=== PATIENT | female | born 1970 | race Caucasian/White ===

== ENCOUNTER 2016-07-07 19:24 | Emergency (ER) | payer BC, MEDICARE ==
[2016-07-07] MEDS ORDERED: KETOROLAC 30 MG/ML VIAL IVP ONE (19:58)
[2016-07-07] MEDS ORDERED: ONDANSETRON HCL IV 4 MG/2 ML VIAL IVP ONE (19:58)
[2016-07-07] MEDS ORDERED: HYOSCYAMINE SULFATE ODT 0.125 MG TAB.SUBL SL ONE (19:58)
--- NOTE | 2016-07-07 20:02 | Emergency Department Record ---
History of Present Illness - General Stated Complaint: EAR PAIN,FEVER, PAIN Time Seen by Provider: 07/07/16 19:57 Source: Patient Mode of Arrival: Ambulatory Limitations: No limitations - History of Present Illness Initial Comments: 46 yo female presents to ED with a CC of nausea, vomiting, body aches, and fever today. Patient reports very mild cough symptoms, denies abdominal pain symptoms. Patient reports headache but denies neck stiffness symptoms. Patient does report a history of RA and is taking Humira currently. Patient denies health problems otherwise. MD Complaint: Fever Onset/Timin -: Days(s) Context: On immunosuppressant(s) Associated Symptoms: Vomiting, Chills, Myalgias, Nausea - Related Data Home Medications Medication Instructions Recorded Confirmed Last Taken Adalimumab [Humira] 60 mg SQ ASDIR 01/30/15 06/19/16 05/24/16 Aripiprazole [Abilify] 5 mg PO DAILY 01/30/15 06/19/16 05/24/16 Duloxetine HCl [Cymbalta] 20 mg PO BID 01/30/15 06/19/16 05/24/16 Gabapentin [Neurontin] 300 mg PO TID 01/30/15 06/19/16 05/24/16 Tramadol HCl [Ultram ER] 300 mg PO DAILY 01/30/15 06/19/16 05/24/16 Hydrocodone/Acetaminophen [[place] 1 tab PO Q8H PRN 10/26/15 06/19/16 05/24/16 7.5mg/325mg] Omeprazole 40 mg PO BID 05/24/16 06/19/16 05/24/16 Previous Rx's Medication Instructions Recorded Doxycycline Hyclate [Doxycycline] 100 mg PO BID #20 cap 07/07/16 Ondansetron [Zofran Odt] 4 mg PO Q4H PRN #20 tab.rapdis 07/07/16 Allergies Allergy/AdvReac Type Severity Reaction Status Date / Time Iodinated Contrast Media - Allergy HIVES Verified 05/24/16 18:26 Oral and Review of Systems Constitutional: Reports: Chills, Fever, Malaise, Weakness. Denies: Night sweats Eyes: Denies: Eye discharge, Eye pain ENT: Reports: Congestion, Ear pain. Denies: Epistaxis Respiratory: Reports: Cough. Denies: Dyspnea, Wheezes Cardiovascular: Denies: Chest pain, Dyspnea on exertion Endocrine: Reports: Fatigue. Denies: Heat or cold intolerance Gastrointestinal: Reports: Diarrhea, Nausea, Vomiting. Denies: Abdominal pain, Constipation Genitourinary: Denies: Frequency, Hematuria, Incontinence, Retention Musculoskeletal: Reports: Myalgia. Denies: Arthralgia, Back pain, Gout, Joint swelling Skin: Denies: Bruising, Change in color Neurological: Reports: Headache. Denies: Abnormal gait, Confusion, Numbness Psychiatric: Denies: Anxiety Hematological/Lymphatic: Denies: Anemia, Blood Clots Past Medical History - SOCIAL HISTORY Smoking Status: Former smoker Drug Use: None - RESPIRATORY Hx Respiratory Disorders: No - CARDIOVASCULAR Hx Cardio Disorders: No - NEURO Hx Neuro Disorders: Yes Hx Headaches: Yes Hx Neuropathy: Yes - GI Hx GI Disorders: No - Hx Genitourinary Disorders: Yes Hx UTI: Yes - ENDOCRINE Hx Endocrine Disorders: No - MUSCULOSKELETAL Hx Musculoskeletal Disorders: Yes Hx Arthritis: Yes (RA) Hx Fibromyalgia: Yes - PSYCH Hx Psych Problems: Yes Hx Anxiety: Yes Hx Depression: Yes - HEMATOLOGY/ONCOLOGY Hx Hematology/Oncology Disorders: No Family Medical History Hx Cancer: Grandparents Hx Heart Disease: Grandparents Hx HTN: Grandparents Physical Exam - General General Appearance: Alert, Oriented x3, Cooperative, Moderate distress Limitations: No limitations - Head Head exam: Atraumatic, Normocephalic, Normal inspection Head exam detail: negative: Abrasion, Contusion, Brady's sign, General tenderness, Hematoma, Laceration - Eye Eye exam: Normal appearance. negative: Conjunctival injection, Periorbital swelling, Periorbital tenderness, Scleral icterus - ENT ENT exam: TM's normal bilaterally Ear exam: negative: Auricular hematoma, Auricular trauma Nasal Exam: negative: Active bleeding, Discharge, Dried blood, Foreign body Throat exam: negative: Tonsillar erythema, Tonsillomegaly, R peritonsillar mass , L peritonsillar mass - Neck Neck exam: Normal inspection. negative: Meningismus, Tenderness - Respiratory Respiratory exam: Normal lung sounds bilaterally. negative: Respiratory distress, Rhonchi, Stridor, Wheezes - Cardiovascular Cardiovascular Exam: Regular rate, Normal rhythm, Normal heart sounds - GI/Abdominal GI/Abdominal exam: Soft. negative: Rebound, Rigid, Tenderness - Rectal Rectal exam: Deferred - exam: Deferred - Extremities Extremities exam: Normal inspection. negative: Calf tenderness, Pedal edema, Tenderness - Back Back exam: Denies: CVA tenderness (R), CVA tenderness (L) - Neurological Neurological exam: Alert, Normal gait, Oriented X3 - Psychiatric Psychiatric exam: Normal affect, Normal mood. negative: Anxious - Skin Skin exam: Normal color. negative: Abrasion Type of lesion: negative: abrasion Course - Reevaluation(s) Reevaluation #1: 07/07/16 21:04 Labs reviewed and are grossly unremarkable for an acute process. Patient reports that her symptoms are beginning to improve. Will add CXR as well and re -evaluate. Reevaluation #2: 07/07/16 22:04 CXR: Left caryl-hilar infiltrate patient and her updated on all results thus far, 2nd liter has completed infusing. Will re-vital and initiate antibiotics for treatment of CAP at this time. Reevaluation #3: 07/07/16 22:33 Patient unable to provide UA sample at this time. repeat vitals are withing normal limits as well. Reevaluation #4: 07/07/16 23:54 Patient's antibiotics have completed infusing for CAP, patient reassessed and has no meningeal signs on examination. repeat temperature is 98.4. Awaiting UA result that has now been obtained. Medical Decision Making - Lab Data Result diagrams: 07/07/16 20:25 07/07/16 20:25 Disposition Disposition: Discharge Clinical Impression: CAP (community acquired pneumonia) Disposition: Home, Self-Care Condition: (2) Stable Instructions: Community-acquired Pneumonia (ED) Additional Instructions: Return to ED if your symptoms worsen or if you have any concerns. Doxycycline as directed. Follow-up with your family doctor in 1-3 days as directed. Prescriptions: Doxycycline Hyclate [Doxycycline] 100 mg PO BID #20 cap Ondansetron [Zofran Odt] 4 mg PO Q4H PRN #20 tab.rapdis PRN Reason: Nausea/Vomiting Forms: Patient Portal Access Time of Disposition: 23:56
[2016-07-07] MEDS: 0.9 % SODIUM CHLORIDE 1000ML 1,000 ML IV SCH ×2 (20:19→21:30)
[2016-07-07 20:28] LABS: INFLUENZA A NEGATIVE (NEGATIVE); INFLUENZA B NEGATIVE (NEGATIVE)
[2016-07-07 20:33] LABS: BASO % 0.2 % (0-6); GRAN % 78.5 % (47-80); HEMATOCRIT 37.8 % (35.0-47.0); HEMOGLOBIN 12.5 gm/dl (11.6-16.0); MEAN CORPUSCULAR HEMOGLOBIN 31.1 pg (27-33); MEAN CORPUSCULAR HGB CONC 33.1 g/dl (32-36); MEAN PLATELET VOLUME 11.3 fl (7.4-10.4); MONO % 6.3 % (0-9); PLATELET COUNT 226 K/uL (130-400); RED BLOOD COUNT 4.02 M/uL (3.80-5.40); RED CELL DISTRIBUTION WIDTH 12.6 % (11.5-14.5); WHITE BLOOD COUNT W/O DIFF 11.2 K/uL (4.2-12.2)
[2016-07-07 20:46] LABS: ALB/GLOB RATIO 1.3 (1.1-1.8); ALBUMIN 4.4 gm/dL (3.5-5.0); ALKALINE PHOSPHATASE 66 U/L (38-126); ALT/SGPT 31 U/L (9-52); ANION GAP 13.4 (7-16); AST/SGOT 22 U/L (14-36); BLOOD UREA NITROGEN 10 mg/dL (7-17); CARBON DIOXIDE 23.6 mmol/L (22-30); CREATININE 0.9 mg/dL (0.52-1.04); EST GLOMERULAR FILTRATION RATE > 60 ml/min; GLUCOSE,RANDOM 101 mg/dL (70-110); TOTAL PROTEIN 7.7 gm/dL (6.3-8.2)
[2016-07-07] MEDS ORDERED: 0.9 % SODIUM CHLORIDE 1000ML 1,000 ML IV SCH (21:15)
[2016-07-07] MEDS ORDERED: CEFTRIAXONE SODIUM 1 GM in 0.9 % SODIUM CHLORIDE 100ML 100 ML IVPB ONE (22:05)
[2016-07-07] MEDS ORDERED: AZITHROMYCIN 500 MG in 0.9 % SODIUM CHLORIDE 250ML 250 ML IVPB ONE (22:05)
[2016-07-07 23:56] LABS: URINE APPEARANCE CLEAR; URINE BILIRUBIN NEGATIVE (NEGATIVE); URINE BLOOD SMALL (NEGATIVE); URINE COLOR YELLOW; URINE GLUCOSE (UA) NEGATIVE (NEGATIVE); URINE KETONE TRACE (NEGATIVE); URINE LEUKOCYTE ESTERASE NEGATIVE (NEGATIVE); URINE NITRITE NEGATIVE (NEGATIVE); URINE PROTEIN NEGATIVE (NEGATIVE); URINE UROBILINOGEN 0.2 E.U./dL (0.20 - 1.00)
[2016-07-08 00:12] LABS: URINE EPITHELIAL CELLS 0 - 2 (FEW); URINE WBC 0 - 2 (0-2/hpf)
== END 2016-07-08 00:11 | disposition home or self-care (01) ==
LOC: MERGE 19:24 → ER 19:24
DX: J18.9 Pneumonia, unspecified organism (principal); R11.2 Nausea with vomiting, unspecified; M79.1 Myalgia; M06.9 Rheumatoid arthritis, unspecified; Z87.891 Personal history of nicotine dependence
CPT/HCPCS: 99284 ×2; 96365; 96375; 85025; 80053; 81001; 87880; 87400; 71020; J1980; J1885; J2405; J0456; J7030; J7050

== ENCOUNTER 2016-07-09 09:06 | Emergency (ER) | payer BC ==
--- NOTE | 2016-07-09 09:24 | Emergency Department Record ---
History of Present Illness - General Chief Complaint: Recheck - Other Stated Complaint: PNEUMONIA NOT ANY BETTER Time Seen by Provider: 07/09/16 09:14 Source: Patient Mode of arrival: Ambulatory Limitations: No limitations - History of Present Illness Initial Comments: The patient is here for recheck due to not feeling well for a few days. She was in the ER about 36 hours ago for body aches, fever, ST, BULLOCK and a mild cough. She was diagnosed with an early pneumonia and then was discharged on Doxycycline. Since the patient states she has had worsening nausea, vomiting, and loose stools. She may have had a fever yesterday but none today. There is no reported blood in the stool or vomitus. She also is complaining of pain all over her abdomen, back, and head. The patient has a long hx of chronic pain and does also have RA and is on Humira. Additionally the patient states she has had about 10 episodes of loose stools and 5 episodes of vomiting since leaving the ED 33 hours ago. The patient is on multiple chronic pain medicines and did run out of her [place] 3 days ago. MD Complaint: Other Onset/Timin -: Days(s) Initial Visit For: Other Returns Today for: Other Symptoms Since Prior Visit: Other Associated Symptoms: Nausea Treatments Prior to Arrival: Given antibiotics on initial visit, Home treatments - Related Data Home Medications Medication Instructions Recorded Confirmed Last Taken Adalimumab [Humira] 60 mg SQ ASDIR 01/30/15 07/09/16 05/24/16 Aripiprazole [Abilify] 5 mg PO DAILY 01/30/15 07/09/16 05/24/16 Duloxetine HCl [Cymbalta] 20 mg PO BID 01/30/15 07/09/16 05/24/16 Gabapentin [Neurontin] 300 mg PO TID 01/30/15 07/09/16 05/24/16 Tramadol HCl [Ultram ER] 300 mg PO DAILY 01/30/15 07/09/16 05/24/16 Hydrocodone/Acetaminophen [[place] 1 tab PO Q8H PRN 10/26/15 07/09/16 05/24/16 7.5mg/325mg] Omeprazole 40 mg PO BID 05/24/16 07/09/16 05/24/16 Celecoxib [Celecoxib] 200 mg PO DAILY 07/09/16 07/09/16 Unknown Previous Rx's Medication Instructions Recorded Doxycycline Hyclate [Doxycycline] 100 mg PO BID #20 cap 07/07/16 Ondansetron [Zofran Odt] 4 mg PO Q4H PRN #20 tab.rapdis 07/07/16 Ciprofloxacin HCl [Cipro] 500 mg PO Q12HR #14 tablet 07/09/16 Metronidazole [Flagyl] 500 mg PO TID #21 tablet 07/09/16 Allergies Allergy/AdvReac Type Severity Reaction Status Date / Time Iodinated Contrast Media - Allergy HIVES Verified 05/24/16 18:26 Oral and Travel Screening - Travel/Exposure Within Last 30 Days Have you traveled within the last 30 days?: No Review of Systems Constitutional: Reports: Malaise. Denies: Chills, Fever Eyes: Denies: Eye discharge, Eye pain ENT: Denies: Congestion Respiratory: Reports: Cough. Denies: Dyspnea Cardiovascular: Denies: Arrhythmia, Chest pain Endocrine: Reports: Fatigue Gastrointestinal: Reports: Abdominal pain, Diarrhea, Nausea, Vomiting Genitourinary: Denies: Dysuria Musculoskeletal: Reports: Back pain Skin: Denies: Bruising Past Medical History - SOCIAL HISTORY Smoking Status: Former smoker - RESPIRATORY Hx Respiratory Disorders: Yes Hx Pneumonia: Yes - CARDIOVASCULAR Hx Cardio Disorders: No - NEURO Hx Neuro Disorders: Yes Hx Headaches: Yes Hx Neuropathy: Yes - GI Hx GI Disorders: No - Hx Genitourinary Disorders: Yes Hx UTI: Yes - ENDOCRINE Hx Endocrine Disorders: No - MUSCULOSKELETAL Hx Musculoskeletal Disorders: Yes Hx Arthritis: Yes (RA) Hx Fibromyalgia: Yes - PSYCH Hx Psych Problems: Yes Hx Anxiety: Yes Hx Depression: Yes - HEMATOLOGY/ONCOLOGY Hx Hematology/Oncology Disorders: No Family Medical History Any Significant Family History?: Yes Hx Cancer: Grandparents Hx Heart Disease: Grandparents Hx HTN: Grandparents Physical Exam - General General Appearance: Alert, Oriented x3, Cooperative, No acute distress - Head Head exam: Atraumatic, Normocephalic, Normal inspection - Eye Eye exam: Normal appearance, PERRL - ENT Throat exam: Normal inspection. negative: Tonsillar erythema, Tonsillar exudate - Neck Neck exam: Normal inspection, Full ROM. negative: Lymphadenopathy, Meningismus (The neck is very supple with a neg Kernig's and Brudsinski's reflexes.), Tenderness - Respiratory Respiratory exam: Normal lung sounds bilaterally. negative: Respiratory distress - Cardiovascular Cardiovascular Exam: Regular rate, Normal rhythm, Normal heart sounds - GI/Abdominal GI/Abdominal exam: Soft, Normal bowel sounds. negative: Rebound, Rigid, Tenderness - Extremities Extremities exam: Normal inspection, Full ROM, Normal capillary refill. negative: Tenderness - Back Back exam: Reports: Normal inspection, Full ROM. Denies: Muscle spasm, Rash noted, Tenderness - Neurological Neurological exam: Alert, Normal gait, Oriented X3. negative: Abnormal gait, Altered, Motor sensory deficit - Psychiatric Psychiatric exam: negative: Anxious - Skin Skin exam: negative: Rash Course Vital Signs 07/09/16 09:07 Temperature 97.5 F L Pulse Rate 88 Respiratory 21 Rate Blood Pressure 110/72 Pulse Ox 98 - Reevaluation(s) Reevaluation #1: The patient is doing very well at this time. She is resting comfortably but does still have her chronic pain issues. Since we do not have her extended release Tramadol that she normally takes we will electroencephalograph technologist her a 50 mg Tramadol orally and 0.5 mg of Dilaudid IV 07/09/16 10:31 Reevaluation #2: The patient is doing well and denies any new issues. I did apologize about the delay due to our lab analyzer malfunctioning. We are still waiting on lab results. 07/09/16 11:38 Reevaluation #3: The patient is doing better at this time. She denies any new pain or discomfort. She has had no vomiting, diarrhea or fever here in the ER over the last 4 hours. On exam her abdomen is very soft and nontender but there is some reproducible lumbar paraspinal tenderness bilaterally. Her gait is normal and she denies any significant BULLOCK at this time. On recheck her repeat temp is 97.7 oral. I did discuss the CT report with the patient and it was neg for any KS or ureter stone. It did possibly demonstrate colon inflammation and a Colonoscopy was recommended. 07/09/16 12:51 Medical Decision Making - Data Complexity MDM Data: Labs Ordered and/or Reviewed, X-Ray Ordered and/or Reviewed - Lab Data Result diagrams: 07/09/16 09:30 07/09/16 09:30 - Radiology Data Radiology results: Report reviewed (CXR: Neg Abd CT: Possible wall thickening of the hepatic flexure and transverse colon with possible some minor inflammatory changes present. Colonoscopy was recommended.) Disposition Disposition: Discharge Clinical Impression: Gastroenteritis Acute headache Qualifiers: Headache type: unspecified Intractability: not intractable Qualified Code(s): R51 - Headache Disposition: Home, Self-Care Condition: (1) Good Instructions: Gastroenteritis (ED) Additional Instructions: Please stop the Doxy and start Cipro and Flagyl. Please continue your regular medicines and see your PCP later this week for recheck. Return to the ER for any increased pain, fever, vomiting, or diarrhea. Prescriptions: Ciprofloxacin HCl [Cipro] 500 mg PO Q12HR #14 tablet Metronidazole [Flagyl] 500 mg PO TID #21 tablet Referrals: [facility] [Provider Group] Forms: Patient Portal Access Time of Disposition: 12:58
[2016-07-09] MEDS: 0.9 % SODIUM CHLORIDE 1,000 ML BAG IV ONE ×2 (09:32→11:10)
[2016-07-09] MEDS: ONDANSETRON HCL IV 4 MG/2 ML VIAL IV ONE (09:32)
[2016-07-09] MEDS: KETOROLAC 30 MG/ML VIAL IVP ONE (09:34)
[2016-07-09 09:39] LABS: BASO % 0.3 % (0-6); EOS % 0.5 % (0-6); GRAN % 66.9 % (47-80); HEMATOCRIT 34.2 % (35.0-47.0); HEMOGLOBIN 11.5 gm/dl (11.6-16.0); LYMPH % 23.2 % (16-45); MEAN CELL VOLUME 93.2 fl (81-97); MEAN CORPUSCULAR HEMOGLOBIN 31.3 pg (27-33); MEAN CORPUSCULAR HGB CONC 33.6 g/dl (32-36); MONO % 9.1 % (0-9); PLATELET COUNT 231 K/uL (130-400); RED BLOOD COUNT 3.67 M/uL (3.80-5.40); RED CELL DISTRIBUTION WIDTH 12.9 % (11.5-14.5); WHITE BLOOD COUNT W/O DIFF 7.3 K/uL (4.2-12.2)
[2016-07-09] MEDS: TRAMADOL HCL 50 MG TABLET PO ONE (10:33)
[2016-07-09] MEDS: HYDROMORPHONE HCL 1 MG/ML CPJ IVP ONE (10:33)
[2016-07-09 11:41] LABS: URINE APPEARANCE CLEAR; URINE BILIRUBIN NEGATIVE (NEGATIVE); URINE BLOOD MODERATE (NEGATIVE); URINE COLOR YELLOW; URINE GLUCOSE (UA) NEGATIVE (NEGATIVE); URINE KETONE 15 mg/dL (NEGATIVE); URINE LEUKOCYTE ESTERASE NEGATIVE (NEGATIVE); URINE NITRITE NEGATIVE (NEGATIVE); URINE UROBILINOGEN 0.2 E.U./dL (0.20 - 1.00)
[2016-07-09 11:51] LABS: URINE BACTERIA NONE SEEN; URINE EPITHELIAL CELLS NONE SEEN (FEW); URINE RBC 16 - 25 (NONE SEEN)
[2016-07-09] MEDS: HYDROCODONE/APAP 7.5/325MG TABLET PO ONE (13:09)
== END 2016-07-09 13:15 | disposition home or self-care (01) ==
LOC: ER 09:06 → MERGE 09:06 → ER 13:15
DX: K52.9 Noninfective gastroenteritis and colitis, unspecified (principal); R11.2 Nausea with vomiting, unspecified; G89.29 Other chronic pain; M06.9 Rheumatoid arthritis, unspecified; R10.9 Unspecified abdominal pain; R51 Headache
CPT/HCPCS: 99284 ×2; 96374; 96375; 96361; 83690; 85025; 85651; 80076; 86140; 80048; 81001; 81025; 71020; 74176; J1885; J2405; J1170; J7030

== ENCOUNTER 2016-07-16 19:05 | Emergency (ER) | payer BC ==
--- NOTE | 2016-07-16 19:33 | Emergency Department Record ---
History of Present Illness - General Chief complaint: Edema Stated complaint: L ARM SWOLLEN AND HARD Time Seen by Provider: 07/16/16 19:33 Source: Patient Mode of Arrival: Ambulatory Limitations: No limitations - History of Present Illness Initial comments: The patient is here due to L arm pain. She has and IV placed in the L arm a week ago while she was in the ER for an illness. For the last few days the L arm has become painful distally and slightly red. She did see her PCP 3 days ago and was told the Cipro and Flagyl she was taking would do the trick for the infection. Presently she is no better so she decided to come to the ER. MD Complaint: Extremity pain Onset/Timin -: Days(s) - Related Data Home Medications Medication Instructions Recorded Confirmed Last Taken Adalimumab [Humira] 60 mg SQ ASDIR 01/30/15 07/16/16 05/24/16 Aripiprazole [Abilify] 5 mg PO DAILY 01/30/15 07/16/16 05/24/16 Duloxetine HCl [Cymbalta] 20 mg PO BID 01/30/15 07/16/16 05/24/16 Gabapentin [Neurontin] 300 mg PO TID 01/30/15 07/16/16 05/24/16 Tramadol HCl [Ultram ER] 300 mg PO DAILY 01/30/15 07/16/16 05/24/16 Hydrocodone/Acetaminophen [[place] 1 tab PO Q8H PRN 10/26/15 07/16/16 05/24/16 7.5mg/325mg] Omeprazole 40 mg PO BID 05/24/16 07/16/16 05/24/16 Celecoxib [Celecoxib] 200 mg PO DAILY 07/09/16 07/16/16 Unknown Previous Rx's Medication Instructions Recorded Ondansetron [Zofran Odt] 4 mg PO Q4H PRN #20 tab.rapdis 07/07/16 Ciprofloxacin HCl [Cipro] 500 mg PO Q12HR #14 tablet 07/09/16 Metronidazole [Flagyl] 500 mg PO TID #21 tablet 07/09/16 Cephalexin [Keflex] 500 mg PO QID #28 cap 07/16/16 Allergies Allergy/AdvReac Type Severity Reaction Status Date / Time Iodinated Contrast Media - Allergy HIVES Verified 03/16/17 18:26 Oral and Travel Screening - Travel/Exposure Within Last 30 Days Have you traveled within the last 30 days?: No Review of Systems Constitutional: Denies: Chills, Fever Eyes: Denies: Eye discharge ENT: Denies: Congestion Respiratory: Denies: Cough, Dyspnea Past Medical History - SOCIAL HISTORY Smoking Status: Former smoker Alcohol Use: None Drug Use: None - RESPIRATORY Hx Respiratory Disorders: Yes Hx Pneumonia: Yes - CARDIOVASCULAR Hx Cardio Disorders: No - NEURO Hx Neuro Disorders: Yes Hx Headaches: Yes Hx Neuropathy: Yes - GI Hx GI Disorders: No - Hx Genitourinary Disorders: Yes Hx UTI: Yes - ENDOCRINE Hx Endocrine Disorders: No - MUSCULOSKELETAL Hx Musculoskeletal Disorders: Yes Hx Arthritis: Yes (RA) Hx Fibromyalgia: Yes - PSYCH Hx Psych Problems: Yes Hx Anxiety: Yes Hx Depression: Yes - HEMATOLOGY/ONCOLOGY Hx Hematology/Oncology Disorders: No Family Medical History Any Significant Family History?: Yes Hx Cancer: Grandparents Hx Heart Disease: Grandparents Hx HTN: Grandparents Physical Exam - General General Appearance: Alert, Oriented x3, No acute distress - Head Head exam: Atraumatic, Normocephalic, Normal inspection - Eye Eye exam: Normal appearance, PERRL - Neck Neck exam: Normal inspection, Full ROM. negative: Tenderness - Respiratory Respiratory exam: Normal lung sounds bilaterally. negative: Respiratory distress - Cardiovascular Cardiovascular Exam: Regular rate, Normal rhythm, Normal heart sounds - Extremities Extremities exam: Full ROM, Normal capillary refill, Tenderness (There is tenderness and slight erythema to the distal L forearm and wrist area distal to the IV site. There may be slight lymphangitis progressing proximally from the presumed cellulitis area.), Other (There is no L upper arm swelling or fullness or any significant tenderness at this time.). negative: Normal inspection Course Vital Signs 07/16/16 19:28 Temperature 97.9 F Pulse Rate 79 Respiratory 18 Rate Blood Pressure 123/84 Pulse Ox 100 Medical Decision Making - Lab Data Result diagrams: 07/16/16 19:50 07/16/16 19:50 Disposition Disposition: Discharge Clinical Impression: Left arm cellulitis Disposition: Home, Self-Care Condition: (1) Good Instructions: Cellulitis (ED) Additional Instructions: Please stop the Cipro and Flagyl. Start the Keflex. Please elevate the L arm and use warm compresses on it during the day. Please return to the ER tomorrow if not better. Please see Dr. Garland later this week for recheck if improved. Prescriptions: Cephalexin [Keflex] 500 mg PO QID #28 cap Forms: Patient Portal Access Time of Disposition: 20:39
[2016-07-16] MEDS ORDERED: CEFTRIAXONE SODIUM 1 GM in 0.9 % SODIUM CHLORIDE 100ML 100 ML IVPB ONE (19:37)
[2016-07-16] MEDS ORDERED: KETOROLAC 30 MG/ML VIAL IVP ONE (19:53)
[2016-07-16 20:01] LABS: WHITE BLOOD COUNT W/O DIFF 10.8 K/uL (4.2-12.2)
[2016-07-16 20:02] LABS: HEMATOCRIT 35.7 % (35.0-47.0); HEMOGLOBIN 11.5 gm/dl (11.6-16.0); MEAN CELL VOLUME 96.5 fl (81-97); MEAN CORPUSCULAR HGB CONC 32.2 g/dl (32-36); MEAN PLATELET VOLUME 10.5 fl (7.4-10.4); PLATELET COUNT 348 K/uL (130-400)
[2016-07-16 20:12] LABS: ANION GAP 9.5 (7-16); BLOOD UREA NITROGEN 13 mg/dL (7-17); CARBON DIOXIDE 28.5 mmol/L (22-30); CREATININE 0.9 mg/dL (0.52-1.04); EST GLOMERULAR FILTRATION RATE > 60 ml/min; GLUCOSE,RANDOM 90 mg/dL (70-110)
[2016-07-16 20:13] LABS: C-REACTIVE PROTEIN < 0.5 mg/dL (0.0-0.9)
== END 2016-07-16 20:46 | disposition home or self-care (01) ==
LOC: ER 19:05
DX: L03.114 Cellulitis of left upper limb (principal)
CPT/HCPCS: 99284 ×2; 96374; 96375; 86140; 80048; 85027; J1885

== ENCOUNTER 2016-07-17 19:22 | Emergency (ER) | payer BC ==
--- NOTE | 2016-07-17 20:03 | Emergency Department Record ---
History of Present Illness - General Chief Complaint: Recheck - Other Stated Complaint: RE-CHECK ON LEFT ARM Time Seen by Provider: 07/17/16 19:24 Source: Patient Mode of arrival: Ambulatory Limitations: No limitations - History of Present Illness Initial Comments: 46 yo female presents to ED for re-evaluation of left forearm, was seen last night and started on Keflex for possible cellulitis. Patient denies fevers, chills, or recent illness. Patient reports that she was told to return if her symptoms failed to improve in 12-24 hours. MD Complaint: Wound re-check Onset/Timin -: Days(s) Initial Visit For: Cellulitis Returns Today for: Cellulitis follow-up Symptoms Since Prior Visit: No new symptoms - Related Data Home Medications Medication Instructions Recorded Confirmed Last Taken Adalimumab [Humira] 60 mg SQ ASDIR 01/30/15 07/17/16 05/24/16 Aripiprazole [Abilify] 5 mg PO DAILY 01/30/15 07/17/16 05/24/16 Duloxetine HCl [Cymbalta] 20 mg PO BID 01/30/15 07/17/16 05/24/16 Gabapentin [Neurontin] 300 mg PO TID 01/30/15 07/17/16 05/24/16 Tramadol HCl [Ultram ER] 300 mg PO DAILY 01/30/15 07/17/16 05/24/16 Hydrocodone/Acetaminophen [[place] 1 tab PO Q8H PRN 10/26/15 07/17/16 05/24/16 7.5mg/325mg] Omeprazole 40 mg PO BID 05/24/16 07/17/16 05/24/16 Celecoxib [Celecoxib] 200 mg PO DAILY 07/09/16 07/17/16 Unknown Previous Rx's Medication Instructions Recorded Ondansetron [Zofran Odt] 4 mg PO Q4H PRN #20 tab.rapdis 07/07/16 Cephalexin [Keflex] 500 mg PO QID #28 cap 07/16/16 Allergies Allergy/AdvReac Type Severity Reaction Status Date / Time Iodinated Contrast Media - Allergy HIVES Verified 05/24/16 18:26 Oral and Travel Screening - Travel/Exposure Within Last 30 Days Have you traveled within the last 30 days?: No Review of Systems Constitutional: Denies: Chills, Fever, Malaise, Night sweats Eyes: Denies: Eye discharge, Eye pain ENT: Denies: Congestion, Ear pain, Epistaxis Respiratory: Denies: Cough, Dyspnea Cardiovascular: Denies: Chest pain, Dyspnea on exertion Endocrine: Denies: Fatigue, Heat or cold intolerance Gastrointestinal: Denies: Abdominal pain, Nausea, Vomiting Genitourinary: Denies: Dysuria, Frequency, Hematuria, Incontinence Musculoskeletal: Denies: Arthralgia, Back pain, Gout, Joint swelling Skin: Reports: Change in color (erythema to the left forearm). Denies: Bruising Neurological: Denies: Abnormal gait, Confusion, Headache, Seizure Psychiatric: Denies: Anxiety Hematological/Lymphatic: Denies: Anemia, Blood Clots Past Medical History - SOCIAL HISTORY Smoking Status: Former smoker Alcohol Use: None Drug Use: None - RESPIRATORY Hx Respiratory Disorders: Yes Hx Pneumonia: Yes - CARDIOVASCULAR Hx Cardio Disorders: No - NEURO Hx Neuro Disorders: Yes Hx Headaches: Yes Hx Neuropathy: Yes - GI Hx GI Disorders: No - Hx Genitourinary Disorders: Yes Hx UTI: Yes - ENDOCRINE Hx Endocrine Disorders: No - MUSCULOSKELETAL Hx Musculoskeletal Disorders: Yes Hx Arthritis: Yes (RA) Hx Fibromyalgia: Yes - PSYCH Hx Psych Problems: Yes Hx Anxiety: Yes Hx Depression: Yes - HEMATOLOGY/ONCOLOGY Hx Hematology/Oncology Disorders: No Family Medical History Any Significant Family History?: Yes Hx Cancer: Grandparents Hx Heart Disease: Grandparents Hx HTN: Grandparents Physical Exam - General General Appearance: Alert, Oriented x3, Cooperative, No acute distress Limitations: No limitations - Head Head exam: Atraumatic, Normocephalic, Normal inspection Head exam detail: negative: Abrasion, Contusion, Brady's sign, General tenderness, Hematoma, Laceration - Eye Eye exam: Normal appearance. negative: Conjunctival injection, Periorbital swelling, Periorbital tenderness, Scleral icterus - ENT Ear exam: negative: Auricular hematoma, Auricular trauma Nasal Exam: negative: Active bleeding, Discharge, Dried blood, Foreign body Mouth exam: negative: Drooling, Laceration, Muffled voice, Tongue elevation - Neck Neck exam: Normal inspection. negative: Meningismus, Tenderness - Respiratory Respiratory exam: Normal lung sounds bilaterally. negative: Rales, Respiratory distress, Rhonchi, Stridor - Cardiovascular Cardiovascular Exam: Regular rate, Normal rhythm, Normal heart sounds - GI/Abdominal GI/Abdominal exam: Soft. negative: Rebound, Rigid, Tenderness - Rectal Rectal exam: Deferred - exam: Deferred - Extremities Extremities exam: Tenderness, Other (Mild TTP and faint erythema noted to the radial aspect of the distal left forearm, no abscess present, mild STS is present to the area.). negative: Calf tenderness, Pedal edema - Back Back exam: Denies: CVA tenderness (R), CVA tenderness (L) - Neurological Neurological exam: Alert, Normal gait, Oriented X3 - Psychiatric Psychiatric exam: Normal affect, Normal mood - Skin Skin exam: Normal color. negative: Abrasion Type of lesion: negative: abrasion Course Vital Signs 07/17/16 19:33 Temperature 98.3 F Pulse Rate 74 Respiratory 18 Rate Blood Pressure 111/82 Pulse Ox 98 - Reevaluation(s) Reevaluation #1: 07/17/16 20:09 Area of erythema was outlined for the patient to determine if the patient's symptoms worsen, will apply velcro wrist splint for support of the patient's pain and inflammation symptoms. Patient appears stable for discharge with instructions to continue her Keflex as directed. Disposition Disposition: Discharge Clinical Impression: Left arm cellulitis Disposition: Home, Self-Care Condition: (2) Stable Instructions: Cellulitis (ED) Additional Instructions: Return to ED if your symptoms worsen or if you have any concerns. Follow-up with your family doctor in 1-3 days as directed. Continue Keflex as directed. Forms: Patient Portal Access Time of Disposition: 20:03
== END 2016-07-17 20:20 | disposition home or self-care (01) ==
LOC: ER 19:22
DX: L03.114 Cellulitis of left upper limb (principal)
CPT/HCPCS: 99283

== ENCOUNTER 2016-11-24 11:58 | Emergency (ER) | payer BC ==
--- NOTE | 2016-11-24 12:18 | Emergency Department Record ---
History of Present Illness - General Chief Complaint: Headache Migraine Stated Complaint: HEADACHE,VOMITTING Time Seen by Provider: 11/24/16 12:03 Source: Patient Mode of Arrival: Ambulatory Limitations: No limitations - History of Present Illness Initial Comments: The patient is here due to a worsening of her chronic pain syndrome. She woke up at 6am with head and jaw pain and then started vomiting about an hour ago. She has a long hx of these exact same headaches and jaw pain and is on multiple medicines for it. She did take her chronic pain medicines but with no relief. Due to that issue she decided to come to the ER. The patient denies any new symptoms and is having mild photophobia. MD Complaint: Headache Onset/Timin -: Hour(s) Onset Description: Awoke with symptoms Location: Diffuse Severity: Moderate Severity scale (1-10): 9 Quality: Aching, Similar to previous headaches Consistency: Constant Improves With: Rest Worsens With: Light Associated Symptoms: Photophobia Treatments Prior to Arrival: Prescription analgesic Treatment Prior to Arrival Comment:: Maite @ [id number] - Related Data Previous Rx's Medication Instructions Recorded Ondansetron [Zofran Odt] 4 mg PO Q4H PRN #20 tab.rapdis 07/07/16 Cephalexin [Keflex] 500 mg PO QID #28 cap 07/16/16 Allergies Allergy/AdvReac Type Severity Reaction Status Date / Time Iodinated Contrast- Oral and Allergy HIVES Verified 11/24/16 12:05 IV Dye [Iodinated Contrast Media - Oral and] Travel Screening - Travel/Exposure Within Last 30 Days Have you traveled within the last 30 days?: No - Travel/Exposure Within Last Year Have you traveled outside the [place] in the last year?: No - Additonal Travel Details Have you been exposed to anyone with a communicable illness?: No - Travel Symptoms Symptom Screening: None Review of Systems Constitutional: Denies: Chills, Fever Eyes: Denies: Eye discharge ENT: Denies: Congestion Respiratory: Denies: Cough, Dyspnea Past Medical History - SOCIAL HISTORY Smoking Status: Former smoker Alcohol Use: Rare Drug Use: None - RESPIRATORY Hx Respiratory Disorders: Yes Hx Pneumonia: Yes - CARDIOVASCULAR Hx Cardio Disorders: No - NEURO Hx Neuro Disorders: Yes Hx Headaches: Yes Hx Neuropathy: Yes - GI Hx GI Disorders: No - Hx Genitourinary Disorders: Yes Hx UTI: Yes - ENDOCRINE Hx Endocrine Disorders: No - MUSCULOSKELETAL Hx Musculoskeletal Disorders: Yes Hx Arthritis: Yes (RA) Hx Fibromyalgia: Yes - PSYCH Hx Psych Problems: Yes Hx Anxiety: Yes Hx Depression: Yes - HEMATOLOGY/ONCOLOGY Hx Hematology/Oncology Disorders: No Family Medical History Any Significant Family History?: Yes Hx Cancer: Grandparents Hx Heart Disease: Grandparents Hx HTN: Grandparents Physical Exam - General General Appearance: Alert, Oriented x3, Cooperative, Mild distress (due to a BULLOCK. ) - Head Head exam: Atraumatic, Normocephalic, Normal inspection - Eye Eye exam: Normal appearance, PERRL, EOMI - ENT Throat exam: Normal inspection. negative: Tonsillar erythema, Tonsillar exudate - Neck Neck exam: Normal inspection, Full ROM. negative: Lymphadenopathy, Meningismus , Tenderness - Respiratory Respiratory exam: Normal lung sounds bilaterally. negative: Respiratory distress - Cardiovascular Cardiovascular Exam: Regular rate, Normal rhythm, Normal heart sounds - GI/Abdominal GI/Abdominal exam: Soft, Normal bowel sounds. negative: Tenderness - Extremities Extremities exam: Normal inspection, Full ROM, Normal capillary refill. negative: Tenderness - Neurological Neurological exam: Alert, Normal gait, Oriented X3, Other (Neg [place] and Drift.). negative: Abnormal gait, Altered, Motor sensory deficit - Skin Skin exam: negative: Rash Course Vital Signs 11/24/16 12:09 Temperature 98.3 F Respiratory 16 Rate Pulse Ox 98 - Reevaluation(s) Reevaluation #1: The patient is doing better. She is sleeping at this time. 11/24/16 13:03 Reevaluation #2: The patient is doing much better at this time. Her pain is 90% resolved and she is up walking with no difficulty or discomfort. Her speech is clear and gait steady and she states she is ready for home. 11/24/16 14:00 Disposition Disposition: Discharge Clinical Impression: Chronic pain syndrome Disposition: Home, Self-Care Condition: (1) Good Instructions: Chronic Pain (ED) Additional Instructions: Please continue your regular medicines. Please see your PCP if not better in 2 days. Return to the ER if worse. Forms: Patient Portal Access Time of Disposition: 13:59 Quality - Quality Measures Quality Measures: N/A - Blood Pressure Screening View Details: Yes Does Patient Have Any of the Following: No Blood Pressure Classification: Normal BP Reading Systolic Measurement: 114 Diastolic Measurement: 66 Screening for High Blood Pressure: < Normal BP, F/U Not Required > [G8765]
[2016-11-24] MEDS ORDERED: METOCLOPRAMIDE HCL 10 MG/2 ML VIAL IVP ONE (12:20)
[2016-11-24] MEDS ORDERED: KETOROLAC 30 MG/ML VIAL IVP ONE ×2 (12:20→13:15)
[2016-11-24] MEDS ORDERED: 0.9 % SODIUM CHLORIDE 1,000 ML BAG IV ONE (12:20)
[2016-11-24] MEDS ORDERED: ONDANSETRON HCL IV 4 MG/2 ML VIAL IVP ONE (12:20)
[2016-11-24] MEDS ORDERED: LORAZEPAM 2 MG/ML VIAL IV ONE (13:15)
== END 2016-11-24 14:17 | disposition home or self-care (01) ==
LOC: ER 11:58
DX: G89.4 Chronic pain syndrome (principal); R51 Headache; R68.84 Jaw pain
CPT/HCPCS: 99284 ×2; 96376; 96374; 96375; J1885; J2405; J2060; J2765; J7030

== ENCOUNTER 2017-01-19 08:44 | Emergency (ER) | payer BC ==
--- NOTE | 2017-01-19 08:59 | Emergency Department Record ---
History of Present Illness - General Chief Complaint: Headache Migraine Stated Complaint: BULLOCK Time Seen by Provider: 01/19/17 08:54 Source: Patient - History of Present Illness Initial Comments: The patient states that she has had her typical migraine headache since yesterday morning. 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 Since then she has chronic jaw pain which at times increases in intensity and progresses into a migraine headache up into her foreahead and scalp. She took a [place] around 7 a.m. with no relief. She also is nauseated, photophobic, and phonophobic. She denies f,c, URI symptoms, rashes, stiff neck, ap(other than nausea), slurred speech, or unilateral weakness. She has had a normal head CT in the past. MD Complaint: "Migraine" - Related Data Home Medications Medication Instructions Recorded Confirmed Last Taken Adalimumab [Humira Pen] 25 mg INJ WEEKLY 01/19/17 01/19/17 01/12/17 Previous Rx's Medication Instructions Recorded Ondansetron [Zofran Odt] 4 mg PO Q4H PRN #20 tab.rapdis 07/07/16 Allergies Allergy/AdvReac Type Severity Reaction Status Date / Time Iodinated Contrast- Oral and Allergy HIVES Verified 01/19/17 08:54 IV Dye [Iodinated Contrast Media - Oral and] Review of Systems Reviewed: No additional complaints except as noted below Constitutional: Reports: As per HPI. Denies: Chills, Fever, Malaise, Night sweats, Weakness, Weight change Eyes: Reports: As per HPI. Denies: Eye discharge, Eye pain, Photophobia, Vision change ENT: Reports: As per HPI. Denies: Congestion, Dental pain, Ear pain, Epistaxis , Hearing loss, Throat pain Respiratory: Reports: As per HPI. Denies: Cough, Dyspnea, Hemoptysis, Stridor, Wheezes Cardiovascular: Reports: As per HPI. Denies: Arrhythmia, Chest pain, Dyspnea on exertion, Edema, Murmurs, Orthopnea, Palpitations, Paroxysmal nocturnal dyspnea, Rheumatic Fever, Syncope Endocrine: Reports: As per HPI. Denies: Fatigue, Heat or cold intolerance, Polydipsia, Polyuria Gastrointestinal: Reports: As per HPI. Denies: Abdominal pain, Constipation, Diarrhea, Hematemesis, Hematochezia, Melena, Nausea, Vomiting Genitourinary: Reports: As per HPI. Denies: Abnormal menses, Discharge, Dyspareunia, Dysuria, Frequency, Hematuria, Incontinence, Retention, Urgency Musculoskeletal: Reports: As per HPI. Denies: Arthralgia, Back pain, Gout, Joint swelling, Myalgia, Neck pain Skin: Reports: As per HPI. Denies: Bruising, Change in color, Change in hair/ nails, Lesions, Pruritus, Rash Neurological: Reports: As per HPI. Denies: Abnormal gait, Confusion, Headache, Numbness, Paresthesias, Seizure, Tingling, Tremors, Vertigo, Weakness Psychiatric: Reports: As per HPI. Denies: Anxiety, Auditory hallucinations, Depression, Homicidal thoughts, Suicidal thoughts, Visual hallucinations Hematological/Lymphatic: Reports: As per HPI. Denies: Anemia, Blood Clots, Easy bleeding, Easy bruising, Swollen glands Past Medical History - SOCIAL HISTORY Smoking Status: Former smoker Drug Use: None - RESPIRATORY Hx Respiratory Disorders: Yes Hx Pneumonia: Yes - CARDIOVASCULAR Hx Cardio Disorders: No - NEURO Hx Neuro Disorders: Yes Hx Headaches: Yes Hx Neuropathy: Yes - GI Hx GI Disorders: No - Hx Genitourinary Disorders: Yes Hx UTI: Yes - ENDOCRINE Hx Endocrine Disorders: No - MUSCULOSKELETAL Hx Musculoskeletal Disorders: Yes Hx Arthritis: Yes (RA) Hx Fibromyalgia: Yes - PSYCH Hx Psych Problems: Yes Hx Anxiety: Yes Hx Depression: Yes - HEMATOLOGY/ONCOLOGY Hx Hematology/Oncology Disorders: No Family Medical History Hx Cancer: Grandparents Hx Heart Disease: Grandparents Hx HTN: Grandparents Physical Exam - General General Appearance: Alert, Oriented x3, Cooperative, Moderate distress - Head Head exam: Normal inspection Head exam detail: Other (tender over TMJ's bilaterally on light palpation) - Eye Eye exam: Normal appearance, PERRL, EOMI. negative: Conjunctival injection, Nystagmus, Periorbital swelling, Periorbital tenderness Pupils: Normal accommodation - ENT ENT exam: Normal exam, Mucous membranes moist, Normal external ear exam, Normal orophraynx, TM's normal bilaterally Ear exam: Normal external inspection. negative: External canal tenderness Nasal Exam: Normal inspection. negative: Discharge, Sinus tenderness Mouth exam: Normal external inspection, Tongue normal, Trismus (opens mouth only partially) Teeth exam: Normal inspection. negative: Dental caries Throat exam: Normal inspection. negative: Tonsillar erythema, Tonsillar exudate - Neck Neck exam: Normal inspection, Full ROM. negative: Lymphadenopathy, Meningismus , Tenderness - Respiratory Respiratory exam: Normal lung sounds bilaterally. negative: Respiratory distress - Cardiovascular Cardiovascular Exam: Regular rate, Normal rhythm, Normal heart sounds - GI/Abdominal GI/Abdominal exam: Soft, Normal bowel sounds. negative: Tenderness - Rectal Rectal exam: Deferred - exam: Deferred - Extremities Extremities exam: Normal inspection, Full ROM, Normal capillary refill. negative: Tenderness - Back Back exam: Reports: Normal inspection, Full ROM. Denies: Muscle spasm, Rash noted, Tenderness - Neurological Neurological exam: Alert, CN II-XII intact, Normal gait, Oriented X3, Reflexes normal. negative: Motor sensory deficit - Psychiatric Psychiatric exam: Normal affect, Normal mood - Skin Skin exam: Dry, Intact, Normal color, Warm Course - Reevaluation(s) Reevaluation #1: Patient is only partially improved after medication. She states her TMJ's are whee the pain is coming from and she is in the process of getting a referral to [facility] for this. She agrees to go home to bed with an ativan pill to take if needed later. Mother at bedside in agreement and will drive her home 01/19/17 10:25 Medical Decision Making - Management Options MDM Management: No Additional Work-up Planned Disposition Disposition: Discharge Clinical Impression: TMJ pain dysfunction syndrome Migraine headache Qualifiers: Migraine type: without aura Status migrainosus presence: without status migrainosus Intractability: not intractable Qualified Code(s): G43.009 - Migraine without aura, not intractable, without status migrainosus Disposition: Home, Self-Care Condition: (1) Good Instructions: Migraine Headache (ED) Additional Instructions: Home, rest. Push fluids. Soft diet/no chewing. Foillow up with [facility] for TMJ problems. Follow up with PCP if not improving. Quality - Quality Measures Quality Measures: N/A - Blood Pressure Screening Does Patient Have Any of the Following: No Blood Pressure Classification: Pre-Hypertensive BP Reading Systolic Measurement: 124 Diastolic Measurement: 73 Screening for High Blood Pressure: < Normal BP, F/U Not Required > [G8783]
[2017-01-19] MEDS ORDERED: ONDANSETRON HCL IV 4 MG/2 ML VIAL IVP ONE (09:08)
[2017-01-19] MEDS ORDERED: 0.9 % SODIUM CHLORIDE 1,000 ML BAG IV ONE (09:08)
[2017-01-19] MEDS ORDERED: DIPHENHYDRAMINE HCL IV 50 MG/ML VIAL IVP ONE (09:08)
[2017-01-19] MEDS ORDERED: METOCLOPRAMIDE HCL 10 MG/2 ML VIAL IVP ONE (09:08)
[2017-01-19] MEDS ORDERED: ORPHENADRINE CITRATE 60MG/2ML VIAL IVP ONE (09:10)
[2017-01-19] MEDS ORDERED: KETOROLAC 30 MG/ML VIAL IVP ONE (09:11)
== END 2017-01-19 10:54 | disposition home or self-care (01) ==
LOC: ER 08:44
DX: G43.009 Migraine without aura, not intractable, without status migrainosus (principal); M26.629 Arthralgia of temporomandibular joint, unspecified side; R11.0 Nausea; H53.149 Visual discomfort, unspecified
CPT/HCPCS: 99284 ×2; 96374; 96375; 96361; J1885; J2405; J1200; J2360; J2765

== ENCOUNTER 2017-10-29 11:06 | Emergency (ER) | payer BC ==
[2017-10-29] MEDS ORDERED: 0.9 % SODIUM CHLORIDE 1000ML 1,000 ML IV ONE (11:26)
[2017-10-29] MEDS ORDERED: ONDANSETRON HCL IV 4 MG/2 ML VIAL IVP ONE (11:27)
[2017-10-29] MEDS ORDERED: KETOROLAC 30 MG/ML VIAL IVP ONE (11:27)
--- NOTE | 2017-10-29 11:31 | Emergency Department Record ---
History of Present Illness - General Chief Complaint: Headache Migraine Stated Complaint: HEADACHE Time Seen by Provider: 10/29/17 11:22 Source: Patient Mode of Arrival: Ambulatory Limitations: No limitations - History of Present Illness Initial Comments: Pt with BULLOCK onset during the night. Hx of similar related to TMJ/jaw issues. Has left temporal pain with nausea and photophobia. No weakness or change in speech or gait. Hx of similar HAs, not worst of life, no "Thunder clap onset". Took Tramdol at home without relief. In ED gets relief with Toradol per pt. MD Complaint: Headache Onset/Timin -: Hour(s) Onset Description: Gradual Location: Diffuse, Left Severity: Moderate Severity scale (1-10): 8 Quality: Similar to previous headaches Consistency: Constant Improves With: Nothing Worsens With: Exertion/activity Context: Other Associated Symptoms: Nausea Treatments Prior to Arrival: None - Related Data Home Medications Medication Instructions Recorded Confirmed Last Taken Brexpiprazole [Rexulti] 4 mg PO DAILY 10/29/17 10/29/17 Unknown Phentermine HCl 37.5 mg PO DAILY 10/29/17 10/29/17 Unknown Allergies Allergy/AdvReac Type Severity Reaction Status Date / Time Iodinated Contrast- Oral and Allergy HIVES Verified 01/19/17 08:54 IV Dye [Iodinated Contrast Media - Oral and] Travel Screening - Travel/Exposure Within Last 30 Days Have you traveled within the last 30 days?: No Review of Systems Constitutional: Denies: Chills, Fever, Malaise Eyes: Reports: Photophobia. Denies: Vision change ENT: Denies: Congestion Respiratory: Denies: Cough, Dyspnea Cardiovascular: Denies: Arrhythmia, Chest pain Endocrine: Denies: Fatigue Gastrointestinal: Reports: Nausea. Denies: Abdominal pain, Vomiting Genitourinary: Denies: Abnormal menses Musculoskeletal: Denies: Arthralgia Skin: Denies: Bruising Neurological: Reports: Headache. Denies: Abnormal gait, Confusion, Tingling Psychiatric: Denies: Suicidal thoughts Hematological/Lymphatic: Denies: Anemia Past Medical History - SOCIAL HISTORY Smoking Status: Former smoker - RESPIRATORY Hx Respiratory Disorders: Yes Hx Pneumonia: Yes - CARDIOVASCULAR Hx Cardio Disorders: No - NEURO Hx Neuro Disorders: Yes Hx Headaches: Yes Hx Neuropathy: Yes - GI Hx GI Disorders: No - Hx Genitourinary Disorders: Yes Hx UTI: Yes - ENDOCRINE Hx Endocrine Disorders: No - MUSCULOSKELETAL Hx Musculoskeletal Disorders: Yes Hx Arthritis: Yes (RA) Hx Fibromyalgia: Yes - PSYCH Hx Psych Problems: Yes Hx Anxiety: Yes Hx Depression: Yes - HEMATOLOGY/ONCOLOGY Hx Hematology/Oncology Disorders: No Family Medical History Any Significant Family History?: Yes Hx Cancer: Grandparents Hx Heart Disease: Grandparents Hx HTN: Grandparents Physical Exam - General General Appearance: Alert, Oriented x3, Cooperative, Moderate distress Limitations: No limitations - Head Head exam: Atraumatic - Eye Eye exam: Normal appearance, PERRL, EOMI. negative: Nystagmus - ENT ENT exam: Normal exam, Mucous membranes moist, Normal external ear exam, Normal orophraynx, TM's normal bilaterally - Neck Neck exam: Normal inspection, Full ROM. negative: Lymphadenopathy, Meningismus , Tenderness - Respiratory Respiratory exam: Normal lung sounds bilaterally. negative: Rhonchi, Wheezes - Cardiovascular Cardiovascular Exam: Regular rate, Normal rhythm, Normal heart sounds Peripheral Pulses: 2+: Radial (R), Radial (L) - GI/Abdominal GI/Abdominal exam: Soft, Normal bowel sounds. negative: Guarding, Rebound, Tenderness - exam: Deferred - Extremities Extremities exam: Normal inspection, Full ROM. negative: Joint swelling, Pedal edema - Back Back exam: Reports: Normal inspection. Denies: Paraspinal tenderness, Vertebral tenderness - Neurological Neurological exam: Alert, CN II-XII intact, Normal gait, Oriented X3 - Psychiatric Psychiatric exam: Normal affect, Normal mood - Skin Skin exam: Normal color. negative: Cyanosis, Rash Course Vital Signs 10/29/17 11:08 Temperature 97.7 F Pulse Rate 68 Respiratory 18 Rate Blood Pressure 133/83 Pulse Ox 99 Disposition Disposition: Discharge Clinical Impression: Headache Disposition: Home, Self-Care Condition: (1) Good Instructions: Acute Headache (ED) Additional Instructions: continue home meds. See you doctor as needed. Forms: Patient Portal Access Quality - Quality Measures Quality Measures: N/A, Headache (All Ages) - Headache: Neuroimaging Quality Measure: Measure #419: Overuse of Neuroimaging ICD10 Codes Entered: Yes Neurological Exam: Patient had a normal neurological exam. [G9535] Headache: Use of Neuroimaging: < CTA, CT, MRA or MRI was NOT ordered > [G9534] - Blood Pressure Screening Does Patient Have Any of the Following: No Blood Pressure Classification: Pre-Hypertensive BP Reading Systolic Measurement: 133 Diastolic Measurement: 83 Screening for High Blood Pressure: < Pre-Hypertensive BP, F/U Documented > [ G8950] Pre-Hypertensive Follow-up Interventions: Follow-up with rescreen every year.
== END 2017-10-29 12:30 | disposition home or self-care (01) ==
LOC: ER 11:06
DX: R51 Headache (principal); R11.0 Nausea; H53.149 Visual discomfort, unspecified; Z87.891 Personal history of nicotine dependence
CPT/HCPCS: 96374; 96375; 99284; J1885; J2405; J7030

== ENCOUNTER 2018-04-13 20:22 | Emergency (ER) | payer BC ==
[2018-04-13] MEDS ORDERED: KETOROLAC 30 MG/ML VIAL IM ONE (21:02)
[2018-04-13] MEDS ORDERED: ORPHENADRINE CITRATE 60MG/2ML VIAL IM ONE (21:02)
--- NOTE | 2018-04-13 21:02 | Emergency Department Record ---
History of Present Illness - General Chief Complaint: Neck Injury/Pain Stated Complaint: JAW AND NECK PAIN Time Seen by Provider: 04/13/18 20:52 Source: Patient Mode of Arrival: Ambulatory - History of Present Illness Initial Comments: The patient has rheumatoid arthritis and had her mandibular condyles replaced over 10 years ago because of it. Her left side has bothered her since the surgery. She takes tramadol and occasional norco 7.5 for the pain. She had one today at 5 p.m. but the pain is worsened. She states she has chronic fluid behind both ears which is not a problem. Two hours ago the pain was so bad that she vomited as well. She denies fevers, chills, sore throat, cough, rashes, or any known signs of infection. She does not have a generalized headache or stiff neck. Onset/Timin -: Days(s) Place: Home Severity: Severe, Similar to prior neck pain Severity scale (1-10): 9 Quality: Aching, Other Consistency: Constant Improves With: None Worsens With: None Context: Other Associated Symptoms: Vomiting Treatments Prior to Arrival: Prescription pain med - Related Data Home Medications Medication Instructions Recorded Confirmed Last Taken Phentermine HCl 37.5 mg PO DAILY 04/13/18 04/13/18 Unknown Allergies Allergy/AdvReac Type Severity Reaction Status Date / Time Iodinated Contrast- Oral and Allergy HIVES Verified 01/19/17 08:54 IV Dye [Iodinated Contrast Media - Oral and] Travel Screening - Travel/Exposure Within Last 30 Days Have you traveled within the last 30 days?: No - Travel Symptoms Symptom Screening: None Review of Systems Reviewed: No additional complaints except as noted below Constitutional: Reports: As per HPI. Denies: Chills, Fever, Malaise, Night sweats, Weakness, Weight change Eyes: Reports: As per HPI. Denies: Eye discharge, Eye pain, Photophobia, Vision change ENT: Reports: As per HPI. Denies: Congestion, Dental pain, Ear pain, Epistaxis , Hearing loss, Throat pain Respiratory: Reports: As per HPI. Denies: Cough, Dyspnea, Hemoptysis, Stridor, Wheezes Cardiovascular: Reports: As per HPI. Denies: Arrhythmia, Chest pain, Dyspnea on exertion, Edema, Murmurs, Orthopnea, Palpitations, Paroxysmal nocturnal dyspnea, Rheumatic Fever, Syncope Endocrine: Reports: As per HPI. Denies: Fatigue, Heat or cold intolerance, Polydipsia, Polyuria Gastrointestinal: Reports: As per HPI. Denies: Abdominal pain, Constipation, Diarrhea, Hematemesis, Hematochezia, Melena, Nausea, Vomiting Genitourinary: Reports: As per HPI. Denies: Abnormal menses, Discharge, Dyspareunia, Dysuria, Frequency, Hematuria, Incontinence, Retention, Urgency Musculoskeletal: Reports: As per HPI. Denies: Arthralgia, Back pain, Gout, Joint swelling, Myalgia, Neck pain Skin: Reports: As per HPI. Denies: Bruising, Change in color, Change in hair/ nails, Lesions, Pruritus, Rash Neurological: Reports: As per HPI. Denies: Abnormal gait, Confusion, Headache, Numbness, Paresthesias, Seizure, Tingling, Tremors, Vertigo, Weakness Psychiatric: Reports: As per HPI. Denies: Anxiety, Auditory hallucinations, Depression, Homicidal thoughts, Suicidal thoughts, Visual hallucinations Hematological/Lymphatic: Reports: As per HPI. Denies: Anemia, Blood Clots, Easy bleeding, Easy bruising, Swollen glands Past Medical History - SOCIAL HISTORY Smoking Status: Former smoker Alcohol Use: None Drug Use: None - RESPIRATORY Hx Respiratory Disorders: Yes Hx Pneumonia: Yes - CARDIOVASCULAR Hx Cardio Disorders: No - NEURO Hx Neuro Disorders: Yes Hx Headaches: Yes Hx Neuropathy: Yes - GI Hx GI Disorders: No - Hx Genitourinary Disorders: Yes Hx UTI: Yes - ENDOCRINE Hx Endocrine Disorders: No - MUSCULOSKELETAL Hx Musculoskeletal Disorders: Yes Hx Arthritis: Yes (RA) Hx Fibromyalgia: Yes - PSYCH Hx Psych Problems: Yes Hx Anxiety: Yes Hx Depression: Yes - HEMATOLOGY/ONCOLOGY Hx Hematology/Oncology Disorders: No Family Medical History Any Significant Family History?: Yes Hx Cancer: Grandparents Hx Heart Disease: Grandparents Hx HTN: Grandparents Physical Exam - General General Appearance: Alert, Oriented x3, Cooperative, Moderate distress - Head Head exam: Normal inspection Head exam detail: Other (tender on palpation of left TMJ region, no edema warmth or erythema) - Eye Eye exam: Normal appearance, PERRL, EOMI. negative: Conjunctival injection, Nystagmus Pupils: Normal accommodation - ENT ENT exam: Normal exam, Mucous membranes moist, Normal external ear exam, Normal orophraynx, Other (TM;s with chronic appearing fluid behind TM's whitish color ) Ear exam: Normal external inspection. negative: External canal tenderness Nasal Exam: Normal inspection. negative: Discharge, Sinus tenderness Mouth exam: Normal external inspection, Tongue normal Teeth exam: Normal inspection. negative: Dental caries Throat exam: Normal inspection. negative: Tonsillar erythema, Tonsillar exudate - Neck Neck exam: Normal inspection, Full ROM. negative: Lymphadenopathy, Meningismus , Tenderness - Respiratory Respiratory exam: Normal lung sounds bilaterally. negative: Respiratory distress - Cardiovascular Cardiovascular Exam: Regular rate, Normal rhythm, Normal heart sounds - GI/Abdominal GI/Abdominal exam: Soft, Normal bowel sounds. negative: Tenderness - Rectal Rectal exam: Deferred - exam: Deferred - Extremities Extremities exam: Normal inspection, Full ROM, Normal capillary refill, Other ( orthotic boot on right foot ). negative: Calf tenderness, Pedal edema, Tenderness - Back Back exam: Reports: Normal inspection, Full ROM. Denies: Muscle spasm, Rash noted, Tenderness - Neurological Neurological exam: Alert, CN II-XII intact, Normal gait, Oriented X3, Reflexes normal. negative: Motor sensory deficit - Psychiatric Psychiatric exam: Normal affect, Normal mood - Skin Skin exam: Dry, Intact, Normal color, Warm Course Vital Signs 04/13/18 20:28 Temperature 97.7 F Pulse Rate [ 107 H Pulse Ox Probe] Respiratory 20 Rate Blood Pressure 144/87 [Left Arm] Pulse Ox 99 Medical Decision Making - Management Options MDM Management: No Additional Work-up Planned Disposition Disposition: Discharge Clinical Impression: TMJ arthralgia Qualifiers: Laterality: left Qualified Code(s): M26.622 - Arthralgia of left temporomandibular joint Disposition: Home, Self-Care Condition: (1) Good Instructions: Temporomandibular Disorder (ED) Additional Instructions: Continue present medications. Continue use of bite block and soft diet to reduce chewing as needed. Follow up with PCP in office for recheck of blood pressure and as needed. Quality - Quality Measures Quality Measures: Headache (All Ages) - Headache: Neuroimaging Quality Measure: Measure #419: Overuse of Neuroimaging ICD10 Codes Entered: Yes Neurological Exam: Patient had a normal neurological exam. [G9535] Headache: Use of Neuroimaging: < CTA, CT, MRA or MRI was NOT ordered > [G9534] - Blood Pressure Screening Does Patient Have Any of the Following: No Blood Pressure Classification: Pre-Hypertensive BP Reading Systolic Measurement: 144 Diastolic Measurement: 87 Screening for High Blood Pressure: < Pre-Hypertensive BP, F/U Documented > [ G8950] Pre-Hypertensive Follow-up Interventions: Follow-up with rescreen every year.
[2018-04-13] MEDS ORDERED: PROMETHAZINE HCL 25 MG/ML VIAL IM ONE (21:03)
== END 2018-04-13 21:53 | disposition home or self-care (01) ==
LOC: ER 20:22
DX: M26.622 Arthralgia of left temporomandibular joint (principal); M54.2 Cervicalgia; R11.11 Vomiting without nausea; Z87.891 Personal history of nicotine dependence
CPT/HCPCS: 99283 ×2; 96372; J1885; J2360; J2550

== ENCOUNTER 2018-04-29 14:09 | Emergency (ER) | payer BC ==
[2018-04-29 15:08] LABS: BASO % 0.5 % (0-6); EOS % 1.9 % (0-6); GRAN % 47.7 % (47-80); HEMATOCRIT 38.6 % (35.0-47.0); HEMOGLOBIN 12.9 gm/dl (11.6-16.0); LYMPH % 44.3 % (16-45); MEAN CELL VOLUME 95.1 fl (81-97); MEAN CORPUSCULAR HEMOGLOBIN 31.8 pg (27-33); MEAN CORPUSCULAR HGB CONC 33.4 g/dl (32-36); MEAN PLATELET VOLUME 11.3 fl (7.4-10.4); MONO % 5.6 % (0-9); PLATELET COUNT 267 K/uL (130-400); RED BLOOD COUNT 4.06 M/uL (3.80-5.40); RED CELL DISTRIBUTION WIDTH 12.6 % (11.5-14.5); WHITE BLOOD COUNT W/O DIFF 10.2 K/uL (4.2-12.2)
[2018-04-29] MEDS: KETOROLAC 30 MG/ML VIAL IVP ONE (15:11)
--- NOTE | 2018-04-29 15:16 | Emergency Department Record ---
History of Present Illness - General Chief Complaint: Neck Injury/Pain Stated Complaint: NECK PAIN, JAW PAIN Time Seen by Provider: 04/29/18 14:16 Source: Patient Mode of Arrival: Ambulatory Limitations: No limitations - History of Present Illness Initial Comments: pt has pain in the side of her l neck that is different then her usual pain in her jaw. she feels like her throat is closing off . MD Complaint: Neck pain Onset/Timin -: Days(s) Place: Home Quality: Aching Consistency: Constant Improves With: None Worsens With: None Associated Symptoms: Difficulty swallowing, Swollen glands Treatments Prior to Arrival: None - Related Data Allergies Allergy/AdvReac Type Severity Reaction Status Date / Time Iodinated Contrast- Oral and Allergy HIVES Verified 04/29/18 14:18 IV Dye [Iodinated Contrast Media - Oral and] Travel Screening - Travel/Exposure Within Last 30 Days Have you traveled within the last 30 days?: No Review of Systems Reviewed: No additional complaints except as noted below Constitutional: Reports: As per HPI. Denies: Chills, Fever, Malaise, Night sweats, Weakness, Weight change Eyes: Reports: As per HPI. Denies: Eye discharge, Eye pain, Photophobia, Vision change ENT: Reports: As per HPI. Denies: Congestion, Dental pain, Ear pain, Epistaxis , Hearing loss, Throat pain Respiratory: Reports: As per HPI. Denies: Cough, Dyspnea, Hemoptysis, Stridor, Wheezes Cardiovascular: Reports: As per HPI. Denies: Arrhythmia, Chest pain, Dyspnea on exertion, Edema, Murmurs, Orthopnea, Palpitations, Paroxysmal nocturnal dyspnea, Rheumatic Fever, Syncope Endocrine: Reports: As per HPI. Denies: Fatigue, Heat or cold intolerance, Polydipsia, Polyuria Gastrointestinal: Reports: As per HPI. Denies: Abdominal pain, Constipation, Diarrhea, Hematemesis, Hematochezia, Melena, Nausea, Vomiting Genitourinary: Reports: As per HPI. Denies: Abnormal menses, Discharge, Dyspareunia, Dysuria, Frequency, Hematuria, Incontinence, Retention, Urgency Musculoskeletal: Reports: As per HPI. Denies: Arthralgia, Back pain, Gout, Joint swelling, Myalgia, Neck pain Skin: Reports: As per HPI. Denies: Bruising, Change in color, Change in hair/ nails, Lesions, Pruritus, Rash Neurological: Reports: As per HPI. Denies: Abnormal gait, Confusion, Headache, Numbness, Paresthesias, Seizure, Tingling, Tremors, Vertigo, Weakness Psychiatric: Reports: As per HPI. Denies: Anxiety, Auditory hallucinations, Depression, Homicidal thoughts, Suicidal thoughts, Visual hallucinations Hematological/Lymphatic: Reports: As per HPI. Denies: Anemia, Blood Clots, Easy bleeding, Easy bruising, Swollen glands Past Medical History - SOCIAL HISTORY Smoking Status: Former smoker Alcohol Use: None Drug Use: None - RESPIRATORY Hx Respiratory Disorders: Yes Hx Pneumonia: Yes - CARDIOVASCULAR Hx Cardio Disorders: No - NEURO Hx Neuro Disorders: Yes Hx Headaches: Yes Hx Neuropathy: Yes - GI Hx GI Disorders: No - Hx Genitourinary Disorders: Yes Hx UTI: Yes - ENDOCRINE Hx Endocrine Disorders: No - MUSCULOSKELETAL Hx Musculoskeletal Disorders: Yes Hx Arthritis: Yes (RA) Hx Fibromyalgia: Yes - PSYCH Hx Psych Problems: Yes Hx Anxiety: Yes Hx Depression: Yes - HEMATOLOGY/ONCOLOGY Hx Hematology/Oncology Disorders: No Family Medical History Any Significant Family History?: Yes Hx Cancer: Grandparents Hx Heart Disease: Grandparents Hx HTN: Grandparents Physical Exam - General General Appearance: Alert, Oriented x3, Cooperative, Mild distress - Head Head exam: Normal inspection - Eye Eye exam: Normal appearance, PERRL, EOMI Pupils: Normal accommodation - ENT ENT exam: Normal exam, Mucous membranes moist, Normal external ear exam, Normal orophraynx Ear exam: Normal external inspection. negative: External canal tenderness Nasal Exam: Normal inspection. negative: Discharge, Sinus tenderness Mouth exam: Normal external inspection, Tongue normal Teeth exam: Normal inspection. negative: Dental caries Throat exam: Normal inspection. negative: Tonsillar erythema, Tonsillar exudate - Neck Neck exam: Full ROM, Tenderness - Respiratory Respiratory exam: Normal lung sounds bilaterally. negative: Respiratory distress - Cardiovascular Cardiovascular Exam: Regular rate, Normal rhythm, Normal heart sounds - GI/Abdominal GI/Abdominal exam: Soft, Normal bowel sounds. negative: Tenderness - Rectal Rectal exam: Deferred - exam: Deferred - Extremities Extremities exam: Normal inspection, Full ROM, Normal capillary refill. negative: Tenderness - Back Back exam: Reports: Normal inspection, Full ROM. Denies: Muscle spasm, Rash noted, Tenderness - Neurological Neurological exam: Alert, CN II-XII intact, Normal gait, Oriented X3 - Psychiatric Psychiatric exam: Normal affect, Normal mood - Skin Skin exam: Dry, Intact, Normal color, Warm Course Vital Signs 04/29/18 14:14 Temperature 97.3 F L Pulse Rate 88 Respiratory 20 Rate Blood Pressure 145/93 Pulse Ox 100 - Reevaluation(s) Reevaluation #1: 04/29/18 16:02 ct neg for acute findings. there were small thyroid nodules Medical Decision Making - Lab Data Result diagrams: 04/29/18 14:55 04/29/18 14:55 Lab Results 04/29/18 Range/Units 14:55 WBC 10.2 (4.2-12.2) K/uL RBC 4.06 (3.80-5.40) M/uL Hgb 12.9 (11.6-16.0) gm/dl Hct 38.6 (35.0-47.0) % MCV 95.1 (81-97) fl MCH 31.8 (27-33) pg MCHC 33.4 (32-36) g/dl RDW 12.6 (11.5-14.5) % Plt Count 267 (130-400) K/uL MPV 11.3 H (7.4-10.4) fl Gran % 47.7 (47-80) % Lymphocytes % 44.3 (16-45) % Monocytes % 5.6 (0-9) % Eosinophils % 1.9 (0-6) % Basophils % 0.5 (0-6) % Disposition Disposition: Discharge Clinical Impression: Neck pain on left side Disposition: Home, Self-Care Condition: (1) Good Instructions: Temporomandibular Disorder (ED) Additional Instructions: follow up with family doctor. have ultrasound of thyroid. return sooner if worse. take motrin for pain with food. Forms: Patient Portal Access Quality - Quality Measures Quality Measures: N/A - Blood Pressure Screening Does Patient Have Any of the Following: No Blood Pressure Classification: Hypertensive Reading Systolic Measurement: 145 Diastolic Measurement: 93 Screening for High Blood Pressure: < First Hypertensive BP, F/U Documented > [ G8950] First Hypertensive Follow-up Interventions: Follow-up with rescreen GT 1 day and LT 4 weeks.
[2018-04-29 15:27] LABS: BLOOD UREA NITROGEN 14 mg/dL (6-20); CREATININE 0.8 mg/dL (0.5-0.9); EST GLOMERULAR FILTRATION RATE > 60 mL/min
[2018-04-29 15:30] LABS: GLUCOSE,RANDOM 93 mg/dL (74-109)
[2018-04-29] MEDS: ONDANSETRON HCL IV 4 MG/2 ML VIAL IVP ONE (15:57)
[2018-04-29] MEDS: HYDROMORPHONE HCL 2 MG/ML VIAL IVP ONE (15:58)
--- NOTE | 2018-05-01 12:32 | CT SCAN REPORT ---
EXAM: CT OF THE CERVICAL SPINE WITHOUT CONTRAST HISTORY: JAW AND NECK PAIN TODAY. LUMP NOTICED ON LEFT SIDE OF NECK LAST NIGHT. TECHNIQUE: Routine noncontrast CT examination of the cervical spine was performed. Comparison: None. FINDINGS: There is normal bone mineralization. There is straightening of the normal cervical lordosis. Minimal anterolisthesis of C4 on C5 as well as C5 on C6 likely relating to facet arthropathy. The vertebral bodies are otherwise normal in alignment and height. No acute fracture, destructive bone lesion or prevertebral soft tissue swelling. Mild disk space narrowing is suggested at the mid and lower cervical levels with early marginal spurring. No gross osseous cervical spinal stenosis. Multilevel bilateral facet arthropathy is present most pronounced at the mid levels where it is moderate to advanced. Minor neural foraminal narrowing is suspected at the mid to lower levels secondary to facet arthropathy. The visualized parotid glands are symmetric and normal in appearance. The submandibular glands are symmetric and normal in appearance. The thyroid gland appears heterogeneous throughout with possible small nodules present. If clinically warranted this could be further evaluated with thyroid ultrasound. No suspicious cervical mass nor adenopathy. Post surgical changes are noted within the mandibular rami. There are degenerative changes/post surgical changes involving the temporomandibular joints. IMPRESSION: 1. NO ACUTE OSSEOUS OR LIGAMENTOUS ABNORMALITY. 2. MULTILEVEL DEGENERATIVE CHANGES OF THE CERVICAL SPINE, DISCUSSED IN DETAIL ABOVE. MINIMAL ANTEROLISTHESIS OF C4 ON C5 WELL C5 ON C6 LIKELY RELATING TO FACET ARTHROPATHY. 3. POST SURGICAL CHANGES INVOLVING THE MANDIBLE. 4. BIAPICAL LUNG SCARRING. 5. THE THYROID APPEARS SOMEWHAT HETEROGENEOUS THROUGHOUT WITH POSSIBLE SMALL NODULES. FURTHER EVALUATION WITH THYROID ULTRASOUND IS RECOMMENDED. JOB NUMBER: [id number] [facility]
== END 2018-04-29 16:29 | disposition home or self-care (01) ==
LOC: ER 14:09
DX: M54.2 Cervicalgia (principal); R13.10 Dysphagia, unspecified; R59.0 Localized enlarged lymph nodes; Z87.891 Personal history of nicotine dependence
CPT/HCPCS: 99284 ×2; 96374; 96375; 85025; 80048; 72125; J1885; J2405; J1170

== ENCOUNTER 2018-05-08 08:29 | Emergency (ER) | payer BC ==
[2018-05-08] MEDS ORDERED: DIPHENHYDRAMINE HCL 50 MG/ML VIAL IVP ONE (08:49)
[2018-05-08] MEDS ORDERED: METOCLOPRAMIDE HCL 10 MG/2 ML VIAL IVP ONE (08:49)
[2018-05-08] MEDS ORDERED: KETOROLAC 30 MG/ML VIAL IVP ONE (08:49)
[2018-05-08] MEDS ORDERED: 0.9 % SODIUM CHLORIDE 1,000 ML BAG IV ONE (08:49)
--- NOTE | 2018-05-08 08:55 | Emergency Department Record ---
History of Present Illness - General Chief Complaint: Headache Migraine Stated Complaint: HEADACHE THIS AM Time Seen by Provider: 05/08/18 08:34 Source: Patient Mode of Arrival: Ambulatory Limitations: No limitations - History of Present Illness Initial Comments: The patient is here due to waking up with a BULLOCK this AM. The pain is all over her head and aching. There is mild nausea and photophobia with it. The patient states she has a long hx of similar BULLOCK's exactly like this and has been to the ER multiple times for it. She denies any visual changes, arm or leg numbness, weakness or any balance issues. MD Complaint: "Migraine" Onset/Timin -: Hour(s) Onset Description: Awoke with symptoms Location: Diffuse Severity: Severe Severity scale (1-10): 10 Quality: Aching, Similar to previous headaches Consistency: Constant Improves With: Nothing Worsens With: None Associated Symptoms: Nausea Treatments Prior to Arrival: Migraine medication Treatment Prior to Arrival Comment:: Tramadol at 0500 300 mg EX - Related Data Allergies Allergy/AdvReac Type Severity Reaction Status Date / Time Iodinated Contrast- Oral and Allergy HIVES Verified 04/29/18 14:18 IV Dye [Iodinated Contrast Media - Oral and] Travel Screening - Travel/Exposure Within Last 30 Days Have you traveled within the last 30 days?: No - Travel/Exposure Within Last Year Have you traveled outside the [place] in the last year?: No - Travel Symptoms Symptom Screening: Headache Review of Systems Constitutional: Denies: Chills, Fever Eyes: Denies: Eye discharge ENT: Denies: Congestion Respiratory: Denies: Cough, Dyspnea Past Medical History - SOCIAL HISTORY Smoking Status: Former smoker - RESPIRATORY Hx Respiratory Disorders: Yes Hx Pneumonia: Yes - CARDIOVASCULAR Hx Cardio Disorders: No - NEURO Hx Neuro Disorders: Yes Hx Headaches: Yes Hx Neuropathy: Yes - GI Hx GI Disorders: No - Hx Genitourinary Disorders: Yes Hx UTI: Yes - ENDOCRINE Hx Endocrine Disorders: No - MUSCULOSKELETAL Hx Musculoskeletal Disorders: Yes Hx Arthritis: Yes (RA) Hx Fibromyalgia: Yes - PSYCH Hx Psych Problems: Yes Hx Anxiety: Yes Hx Depression: Yes - HEMATOLOGY/ONCOLOGY Hx Hematology/Oncology Disorders: No Family Medical History Any Significant Family History?: No Hx Cancer: Grandparents Hx Heart Disease: Grandparents Hx HTN: Grandparents Physical Exam - General General Appearance: Alert, Oriented x3, Cooperative, No acute distress - Head Head exam: Atraumatic, Normocephalic, Normal inspection - Eye Eye exam: Normal appearance, PERRL, EOMI - ENT Throat exam: Normal inspection. negative: Tonsillar erythema, Tonsillar exudate - Neck Neck exam: Normal inspection, Full ROM. negative: Meningismus (The neck is very supple.), Tenderness - Respiratory Respiratory exam: Normal lung sounds bilaterally. negative: Respiratory distress - Cardiovascular Cardiovascular Exam: Regular rate, Normal rhythm, Normal heart sounds - GI/Abdominal GI/Abdominal exam: Soft, Normal bowel sounds. negative: Tenderness - Extremities Extremities exam: Normal inspection, Full ROM, Normal capillary refill. negative: Tenderness - Neurological Neurological exam: Alert, Normal gait, Other (Neg Drift and Rhomberg exams.). negative: Abnormal gait, Motor sensory deficit - Psychiatric Psychiatric exam: negative: Anxious - Skin Skin exam: negative: Rash Course Vital Signs 05/08/18 08:33 Temperature 97.6 F Pulse Rate 82 Respiratory 20 Rate Blood Pressure 123/96 Pulse Ox 100 - Reevaluation(s) Reevaluation #1: The patient is doing much better at this time. Her BULLOCK is at least 50% better and she is ready for home. 05/08/18 10:22 Disposition Disposition: Discharge Clinical Impression: Migraine Qualifiers: Migraine type: unspecified Status migrainosus presence: without status migrainosus Intractability: not intractable Qualified Code(s): G43.909 - Migraine, unspecified, not intractable, without status migrainosus Disposition: Home, Self-Care Condition: (2) Stable Instructions: Migraine Headache (ED) Additional Instructions: Please continue your regular medicines and see your headache specialist if not better tomorrow. Please return to the ER for any worsening symptoms. Forms: Patient Portal Access Time of Disposition: 10:23 Quality - Quality Measures Quality Measures: Headache (All Ages) - Headache: Neuroimaging Quality Measure: Measure #419: Overuse of Neuroimaging ICD10 Codes Entered: Yes View Detail: Yes Neurological Exam: Patient had a normal neurological exam. [G9535] Headache: Use of Neuroimaging: < CTA, CT, MRA or MRI was NOT ordered > [G9534] - Blood Pressure Screening View Details: Yes Does Patient Have Any of the Following: No Blood Pressure Classification: Hypertensive Reading Systolic Measurement: 123 Diastolic Measurement: 96 Screening for High Blood Pressure: < First Hypertensive BP, F/U Documented > [ G8950] First Hypertensive Follow-up Interventions: Referral to alternative/primary care provider.
== END 2018-05-08 10:44 | disposition home or self-care (01) ==
LOC: ER 08:29
DX: G43.909 Migraine, unspecified, not intractable, without status migrainosus (principal); R11.0 Nausea; H53.149 Visual discomfort, unspecified; F17.210 Nicotine dependence, cigarettes, uncomplicated
CPT/HCPCS: 99284 ×2; 96374; 96375; J1885; J2765; J7030

== ENCOUNTER 2018-10-26 01:57 | Emergency (ER) | payer BC ==
[2018-10-26] MEDS ORDERED: KETOROLAC 30 MG/ML VIAL IM ONE (02:19)
--- NOTE | 2018-10-26 02:54 | Emergency Department Record ---
History of Present Illness - General Chief Complaint: Fall Injury Stated Complaint: FALL Time Seen by Provider: 10/26/18 02:08 Source: Patient Mode of Arrival: Ambulatory Limitations: No limitations - History of Present Illness Initial Comments: pt fell 6hrs ago injuring her r elbow and nose. no loc MD Complaint: Fall Onset/Timin -: Hour(s) Fall From: Standing When Fall Occurred: Other Fall Witnessed: Yes, by family Place Fall Occurred: Street Loss of Consciousness: None Prolonged Down Time?: No Symptoms Prior to Fall: None Location: Face Location - Extremities: Right: Forearm Severity: Moderate Severity scale (1-10): 8 Associated Symptoms: Denies - [place] Coma Scale Eye Response: (4) Open spontaneously Motor Response: (6) Obeys commands Verbal Response: (5) Oriented [place] Total: 15 - Related Data Home Medications Medication Instructions Recorded Confirmed Last Taken Esomeprazole Magnesium [Nexium 40 mg PO DAILY 10/26/18 10/26/18 10/26/18 24Hr] Allergies Allergy/AdvReac Type Severity Reaction Status Date / Time Iodinated Contrast Media Allergy HIVES Verified 10/26/18 02:04 [Iodinated Contrast Media - Oral and] Travel Screening - Travel/Exposure Within Last 30 Days Have you traveled within the last 30 days?: No - Travel/Exposure Within Last Year Have you traveled outside the [place] in the last year?: No - Additonal Travel Details Have you been exposed to anyone with a communicable illness?: No - Travel Symptoms Symptom Screening: None Review of Systems Reviewed: No additional complaints except as noted below Constitutional: Reports: As per HPI. Denies: Chills, Fever, Malaise, Night sweats, Weakness, Weight change Eyes: Reports: As per HPI. Denies: Eye discharge, Eye pain, Photophobia, Vision change ENT: Reports: As per HPI. Denies: Congestion, Dental pain, Ear pain, Epistaxis, Hearing loss, Throat pain Respiratory: Reports: As per HPI. Denies: Cough, Dyspnea, Hemoptysis, Stridor, Wheezes Cardiovascular: Reports: As per HPI. Denies: Arrhythmia, Chest pain, Dyspnea on exertion, Edema, Murmurs, Orthopnea, Palpitations, Paroxysmal nocturnal dyspnea, Rheumatic Fever, Syncope Endocrine: Reports: As per HPI. Denies: Fatigue, Heat or cold intolerance, Polydipsia, Polyuria Gastrointestinal: Reports: As per HPI. Denies: Abdominal pain, Constipation, Diarrhea, Hematemesis, Hematochezia, Melena, Nausea, Vomiting Genitourinary: Reports: As per HPI. Denies: Abnormal menses, Discharge, Dyspareunia, Dysuria, Frequency, Hematuria, Incontinence, Retention, Urgency Musculoskeletal: Reports: As per HPI. Denies: Arthralgia, Back pain, Gout, Joint swelling, Myalgia, Neck pain Skin: Reports: As per HPI. Denies: Bruising, Change in color, Change in hair/nails, Lesions, Pruritus, Rash Neurological: Reports: As per HPI. Denies: Abnormal gait, Confusion, Headache, Numbness, Paresthesias, Seizure, Tingling, Tremors, Vertigo, Weakness Psychiatric: Reports: As per HPI. Denies: Anxiety, Auditory hallucinations, Depression, Homicidal thoughts, Suicidal thoughts, Visual hallucinations Hematological/Lymphatic: Reports: As per HPI. Denies: Anemia, Blood Clots, Easy bleeding, Easy bruising, Swollen glands Past Medical History - SOCIAL HISTORY Smoking Status: Former smoker Alcohol Use: Rare Drug Use: None - RESPIRATORY Hx Respiratory Disorders: Yes Hx Pneumonia: Yes - CARDIOVASCULAR Hx Cardio Disorders: No - NEURO Hx Neuro Disorders: Yes Hx Headaches: Yes Hx Neuropathy: Yes - GI Hx GI Disorders: Yes Hx Reflux: Yes Hx Hiatal Hernia: Yes - Hx Genitourinary Disorders: Yes Hx UTI: Yes - ENDOCRINE Hx Endocrine Disorders: No - MUSCULOSKELETAL Hx Musculoskeletal Disorders: Yes Hx Arthritis: Yes (RA) Hx Fibromyalgia: Yes - PSYCH Hx Psych Problems: Yes Hx Anxiety: Yes Hx Depression: Yes - HEMATOLOGY/ONCOLOGY Hx Hematology/Oncology Disorders: No Family Medical History Any Significant Family History?: No Hx Cancer: Grandparents Hx Heart Disease: Grandparents Hx HTN: Grandparents Physical Exam - General General Appearance: Alert, Oriented x3, Cooperative, Mild distress - Head Head exam: Normal inspection - Eye Eye exam: Normal appearance, PERRL, EOMI Pupils: Normal accommodation - ENT ENT exam: Normal exam, Mucous membranes moist, Normal external ear exam, Normal orophraynx, TM's normal bilaterally Ear exam: Normal external inspection. negative: External canal tenderness Nasal Exam: Normal inspection, Other (tender to touch, no blood, no deformity). negative: Discharge, Sinus tenderness Mouth exam: Normal external inspection, Tongue normal Teeth exam: Normal inspection. negative: Dental caries Throat exam: Normal inspection. negative: Tonsillar erythema, Tonsillar exudate - Neck Neck exam: Normal inspection, Full ROM. negative: Tenderness - Respiratory Respiratory exam: Normal lung sounds bilaterally. negative: Respiratory distress - Cardiovascular Cardiovascular Exam: Regular rate, Normal rhythm, Normal heart sounds - GI/Abdominal GI/Abdominal exam: Soft, Normal bowel sounds. negative: Tenderness - Rectal Rectal exam: Deferred - exam: Deferred - Extremities Extremities exam: Normal capillary refill, Tenderness. negative: Normal inspection, Full ROM Image of Full Body: 1 - tender 2 - tender - Back Back exam: Reports: Normal inspection, Full ROM. Denies: Muscle spasm, Rash noted, Tenderness - Neurological Neurological exam: Alert, CN II-XII intact, Normal gait, Oriented X3 - Psychiatric Psychiatric exam: Normal affect, Normal mood - Skin Skin exam: Dry, Intact, Normal color, Warm Course Vital Signs 10/26/18 02:02 Temperature 97.9 F Pulse Rate [ 107 H Pulse Ox Probe] Respiratory 20 Rate Blood Pressure 146/93 [Left Arm] Pulse Ox 99 - Reevaluation(s) Reevaluation #1: 10/26/18 02:59 xray shows posterior and anterior fat pad, possible occult fx, moderate joint effusion Disposition Disposition: Discharge Clinical Impression: Occult fracture of elbow Qualifiers: Encounter type: initial encounter Fracture type: closed Laterality: right Qualified Code(s): S42.401A - Unspecified fracture of lower end of right humerus, initial encounter for closed fracture Disposition: Home, Self-Care Condition: (1) Good Instructions: Elbow Fracture (ED), Contusion in Adults (ED) Additional Instructions: follow up with orthopedic doctor. return sooner if worse. ice and elevation, Referrals: Keith Young [DOCTOR OF OSTEOPATH] - [facility] Specialty Clinics [Provider Group] Forms: Patient Portal Access Quality - Quality Measures Quality Measures: N/A - Blood Pressure Screening Does Patient Have Any of the Following: No Blood Pressure Classification: Hypertensive Reading Systolic Measurement: 146 Diastolic Measurement: 93 Screening for High Blood Pressure: < First Hypertensive BP, F/U Documented > [G8950] First Hypertensive Follow-up Interventions: Follow-up with rescreen GT 1 day and LT 4 weeks.
--- NOTE | 2018-10-27 08:07 | RADIOLOGY REPORT ---
EXAM: NASAL BONES HISTORY: PATIENT HAS A HISTORY OF FALL. TECHNIQUE: Three views of the nasal bones are provided along with the comparison CT scan of the cervical spine done on 04/29/18. FINDINGS: There is no radiographic evidence of a fracture or dislocation of the nasal bones. The paranasal sinuses appear unremarkable. The visualized orbits appear intact. IMPRESSION: THERE IS NO RADIOGRAPHIC EVIDENCE OF A FRACTURE OR DISLOCATION OF THE NASAL BONE. JOB NUMBER: [id number] [facility]
--- NOTE | 2018-10-27 08:11 | RADIOLOGY REPORT ---
EXAM: RIGHT ELBOW, THREE VIEWS HISTORY: PATIENT HAS A HISTORY OF FALL. TECHNIQUE: Three views of the right elbow are provided without comparison examination. FINDINGS: There is a significant anterior antecubital and posterior olecranon fat pad prominence. These findings suggest a subtle fracture. There is irregularity of the radial head and proximal neck. These findings suggest a subtle nondisplaced fracture. If there is further clinical concern then MRI of the right elbow can be obtained for further evaluation. IMPRESSION: PROMINENT JOINT EFFUSION IS NOTED WITH MILD CORTICAL IRREGULARITY OF THE RIGHT RADIAL HEAD AND NECK. THESE FINDINGS SUGGEST A SUBTLE FRACTURE. IF THERE IS FURTHER CLINICAL CONCERN THEN AN MRI OF THE RIGHT ELBOW CAN BE OBTAINED FOR FURTHER EVALUATION. JOB [facility]BER: [id number] [facility]
== END 2018-10-26 03:22 | disposition home or self-care (01) ==
LOC: ER 01:57
DX: S42.401A Unspecified fracture of lower end of right humerus, initial encounter for closed fracture (principal); J34.89 Other specified disorders of nose and nasal sinuses; W19.XXXA Unspecified fall, initial encounter; Y92.414 Local residential or business street as the place of occurrence of the external cause
CPT/HCPCS: 70160; 96372; 99284; J1885

== ENCOUNTER 2018-10-27 20:55 | Emergency (ER) | payer BC ==
[2018-10-27] MEDS ORDERED: Diph,Pert(Acell),Tet Vac 0.5 ML SYR IM ONE (21:11)
--- NOTE | 2018-10-27 21:12 | Emergency Department Record ---
History of Present Illness - General Chief Complaint: Recheck - Other Stated Complaint: RECHECK Time Seen by Provider: 10/27/18 20:58 Source: Patient Mode of arrival: Ambulatory Limitations: No limitations - History of Present Illness Initial Comments: 48 yo female presents to ED for re-evaluation of swelling to the right hand following diagnosis and treatment for elbow fracture 2 days ago. Patient denies numbness or tingling, denies weakness of the fingers distally. Patient was placed in splint following her injury and does have an appointment with Dr. Young in 2 days. Complaint: Other Onset/Timin -: Days(s) Initial Visit For: Other Returns Today for: Other Symptoms Since Prior Visit: Worsening swelling Associated Symptoms: None Treatments Prior to Arrival: Splint(s) - Related Data Allergies Allergy/AdvReac Type Severity Reaction Status Date / Time Iodinated Contrast Media Allergy HIVES Verified 10/27/18 21:01 [Iodinated Contrast Media - Oral and] Travel Screening - Travel/Exposure Within Last 30 Days Have you traveled within the last 30 days?: No - Travel/Exposure Within Last Year Have you traveled outside the [place] in the last year?: No - Additonal Travel Details Have you been exposed to anyone with a communicable illness?: No - Travel Symptoms Symptom Screening: None Review of Systems Constitutional: Denies: Chills, Fever, Malaise, Night sweats Eyes: Denies: Eye discharge, Eye pain ENT: Denies: Congestion, Ear pain, Epistaxis Respiratory: Denies: Cough, Dyspnea Cardiovascular: Reports: Edema. Denies: Chest pain, Dyspnea on exertion, Palpitations Endocrine: Denies: Fatigue, Heat or cold intolerance Gastrointestinal: Denies: Abdominal pain, Nausea, Vomiting Genitourinary: Denies: Incontinence, Retention Musculoskeletal: Reports: Arthralgia. Denies: Back pain, Gout, Joint swelling Skin: Denies: Bruising, Change in color Neurological: Denies: Abnormal gait, Confusion, Headache, Seizure Psychiatric: Denies: Anxiety Hematological/Lymphatic: Denies: Anemia, Blood Clots Past Medical History - SOCIAL HISTORY Smoking Status: Former smoker Alcohol Use: None Drug Use: None - RESPIRATORY Hx Respiratory Disorders: Yes Hx Pneumonia: Yes - CARDIOVASCULAR Hx Cardio Disorders: No - NEURO Hx Neuro Disorders: Yes Hx Headaches: Yes Hx Neuropathy: Yes - GI Hx GI Disorders: Yes Hx Reflux: Yes Hx Hiatal Hernia: Yes - Hx Genitourinary Disorders: Yes Hx UTI: Yes - ENDOCRINE Hx Endocrine Disorders: No - MUSCULOSKELETAL Hx Musculoskeletal Disorders: Yes Hx Arthritis: Yes (RA) Hx Fibromyalgia: Yes - PSYCH Hx Psych Problems: Yes Hx Anxiety: Yes Hx Depression: Yes - HEMATOLOGY/ONCOLOGY Hx Hematology/Oncology Disorders: No Family Medical History Any Significant Family History?: No Hx Cancer: Grandparents Hx Heart Disease: Grandparents Hx HTN: Grandparents Physical Exam - General General Appearance: Alert, Oriented x3, Cooperative, Mild distress, Anxious Limitations: No limitations - Head Head exam: Atraumatic, Normocephalic, Normal inspection Head exam detail: negative: Abrasion, Contusion, Brady's sign, General tenderness, Hematoma, Laceration - Eye Eye exam: Normal appearance. negative: Conjunctival injection, Periorbital swelling, Periorbital tenderness, Scleral icterus - ENT Ear exam: negative: Auricular hematoma, Auricular trauma Nasal Exam: negative: Active bleeding, Discharge, Dried blood, Foreign body Mouth exam: negative: Drooling, Laceration, Muffled voice, Tongue elevation - Neck Neck exam: Normal inspection. negative: Meningismus, Tenderness - Respiratory Respiratory exam: Normal lung sounds bilaterally. negative: Rales, Respiratory distress, Rhonchi, Stridor - Cardiovascular Cardiovascular Exam: Regular rate, Normal rhythm, Normal heart sounds Peripheral Pulses: 3+: Radial (R) (normal distal radial pulse on examination, cap refill of the distal finger <2 seconds.) - GI/Abdominal GI/Abdominal exam: Soft. negative: Rebound, Rigid, Tenderness - Rectal Rectal exam: Deferred - exam: Deferred - Extremities Extremities exam: Other (On examination, patient has mild edema to the dorsum of isabel right hand, splint is in satisfactory place, strong distal radial pulse is present on examination, cap refill to the distal finger (nail thai on finger nails) is <2 seconds.). negative: Calf tenderness, Pedal edema, Tenderness - Back Back exam: Denies: CVA tenderness (R), CVA tenderness (L) - Neurological Neurological exam: Alert, Normal gait, Oriented X3 - Psychiatric Psychiatric exam: Normal affect, Normal mood - Skin Skin exam: Normal color. negative: Abrasion Type of lesion: negative: abrasion Course Vital Signs 10/27/18 20:59 Temperature 97.8 F Pulse Rate 86 Respiratory 20 Rate Blood Pressure 142/82 Pulse Ox 98 - Reevaluation(s) Reevaluation #1: 10/27/18 21:22 Reviewed the patient's radiograph results with her at the bedside. Examination appears c/w post-traumatic edema, no evidence for vascular compromise is evident on examination. Patient's tetanus was updated per patient request due to multiple abrasions following her fall as well. Patient appears stable for discharge to follow-up with Dr. Young Saturday as scheduled. Disposition Disposition: Discharge Clinical Impression: Aftercare for cast or splint check or change Disposition: Home, Self-Care Condition: (2) Stable Instructions: Elbow Fracture (ED) Additional Instructions: Return to ED if your symptoms worsen or if you have any concerns. Follow-up with Dr. Young as scheduled in 2 days. Forms: Patient Portal Access Time of Disposition: 21:12 Quality - Quality Measures Quality Measures: N/A - Blood Pressure Screening Does Patient Have Any of the Following: No Blood Pressure Classification: Pre-Hypertensive BP Reading Systolic Measurement: 142 Diastolic Measurement: 82 Screening for High Blood Pressure: < Pre-Hypertensive BP, F/U Documented > [G8950] Pre-Hypertensive Follow-up Interventions: Referral to alternative/primary care provider.
== END 2018-10-27 21:30 | disposition home or self-care (01) ==
LOC: ER 20:55
DX: S42.402D Unspecified fracture of lower end of left humerus, subsequent encounter for fracture with routine healing (principal); W19.XXXD Unspecified fall, subsequent encounter; Y92.414 Local residential or business street as the place of occurrence of the external cause
CPT/HCPCS: 90715; 96372; 99282

== ENCOUNTER 2019-03-13 15:46 | Emergency (ER) | payer BC ==
--- NOTE | 2019-03-13 15:58 | Emergency Department Record ---
History of Present Illness - General Stated complaint: BULLOCK AND JAW PAIN Time Seen by Provider: 03/13/19 15:55 Source: Patient Mode of Arrival: Ambulatory Limitations: No limitations - History of Present Illness Initial comments: 48 yo female presents with jaw pain and headache. This has been a recurrent issue for a number of years. No fever, vision changes, swelling, tinnitus, difficulty speaking. 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 Since then she has had headaches and jaw pain on a frequent basis. She has pain in both jaw area radiating to the face. She sees a pain specialist and PCP. She is waiting for a [facility] referral. -: Days(s) Severity: Moderate Quality: Aching Consistency: Constant Improves with: None Worsens with: Movement Context- Dental: Other Associated Symptoms: Other - Related Data Home Medications Medication Instructions Recorded Confirmed Last Taken Desvenlafaxine Succinate [Pristiq] 100 mg PO DAILY 03/13/19 03/13/19 03/13/19 Allergies Allergy/AdvReac Type Severity Reaction Status Date / Time Iodinated Contrast Media Allergy HIVES Verified 10/27/18 21:01 [Iodinated Contrast Media - Oral and] Review of Systems Constitutional: Denies: Chills, Fever, Malaise, Weakness Eyes: Reports: Photophobia. Denies: Eye discharge, Eye pain, Vision change ENT: Reports: Dental pain, Ear pain. Denies: Congestion, Epistaxis, Hearing loss, Throat pain Respiratory: Denies: Cough, Dyspnea Cardiovascular: Denies: Chest pain, Palpitations, Syncope Endocrine: Denies: Fatigue, Polydipsia, Polyuria Gastrointestinal: Denies: Abdominal pain, Constipation, Diarrhea Genitourinary: Denies: Dysuria, Urgency Musculoskeletal: Reports: As per HPI, Arthralgia, Myalgia. Denies: Back pain Skin: Denies: Bruising, Change in color, Rash Neurological: Reports: Headache. Denies: Abnormal gait, Numbness, Tingling, Tremors, Vertigo, Weakness Psychiatric: Denies: Anxiety Hematological/Lymphatic: Denies: Easy bleeding, Easy bruising Past Medical History - SOCIAL HISTORY Smoking Status: Former smoker Drug Use: None - RESPIRATORY Hx Respiratory Disorders: Yes Hx Pneumonia: Yes - CARDIOVASCULAR Hx Cardio Disorders: No - NEURO Hx Neuro Disorders: Yes Hx Headaches: Yes Hx Neuropathy: Yes - GI Hx GI Disorders: Yes Hx Reflux: Yes Hx Hiatal Hernia: Yes - Hx Genitourinary Disorders: Yes Hx UTI: Yes - ENDOCRINE Hx Endocrine Disorders: No - MUSCULOSKELETAL Hx Musculoskeletal Disorders: Yes Hx Arthritis: Yes (RA) Hx Fibromyalgia: Yes - PSYCH Hx Psych Problems: Yes Hx Anxiety: Yes Hx Depression: Yes - HEMATOLOGY/ONCOLOGY Hx Hematology/Oncology Disorders: No Family Medical History Hx Cancer: Grandparents Hx Heart Disease: Grandparents Hx HTN: Grandparents Physical Exam - General General Appearance: Alert, Oriented x3, Cooperative, No acute distress Limitations: No limitations - Head Head exam: Atraumatic, Normocephalic, Normal inspection - Eye Eye exam: Normal appearance, PERRL, EOMI. negative: Conjunctival injection, Nystagmus, Periorbital swelling, Periorbital tenderness - ENT ENT exam: Normal exam, Mucous membranes moist, Normal orophraynx, TM's normal bilaterally. negative: Mucous membranes dry Ear exam: Normal external inspection. negative: Auricular hematoma Nasal Exam: negative: Active bleeding, Discharge, Dried blood Mouth exam: Tongue normal. negative: Drooling, Laceration, Muffled voice, Tongue elevation Teeth exam: negative: Dental caries Throat exam: Normal inspection. negative: Tonsillar erythema, Tonsillomegaly, Tonsillar exudate, R peritonsillar mass, L peritonsillar mass - Neck Neck exam: Normal inspection, Full ROM. negative: Lymphadenopathy, Tenderness - Respiratory Respiratory exam: Normal lung sounds bilaterally. negative: Accessory muscle use, Decreased breath sounds, Prolonged expiratory, Rhonchi, Stridor, Wheezes - Cardiovascular Cardiovascular Exam: Regular rate, Normal rhythm, Normal heart sounds - Neurological Neurological exam: Alert, Oriented X3. negative: Altered, Motor sensory deficit - Psychiatric Psychiatric exam: Normal affect, Normal mood. negative: Agitated, Anxious - Skin Skin exam: Dry, Intact, Normal color, Warm Course - Reevaluation(s) Reevaluation #1: 03/13/19 17:42 The patient is doing well and is comfortable with DC. We discussed at length reasons to immediately return to the ED as well as close follow up. Disposition Disposition: Discharge Clinical Impression: Migraine, Jaw pain, non-TMJ Disposition: Home, Self-Care Condition: (1) Good Instructions: Migraine Headache (ED) Additional Instructions: Call your doctor for the next available follow up appointment Return to the ER for a recheck immediately if worse, any new concerns or questions Time of Disposition: 17:42 Quality - Quality Measures Quality Measures: N/A, Headache (All Ages) - Headache: Neuroimaging Quality Measure: Measure #419: Overuse of Neuroimaging ICD10 Codes Entered: Yes Neurological Exam: Patient had a normal neurological exam. [G9535] Headache: Use of Neuroimaging: < CTA, CT, MRA or MRI was NOT ordered > [G9534] - Blood Pressure Screening Does Patient Have Any of the Following: No Blood Pressure Classification: Pre-Hypertensive BP Reading Systolic Measurement: 116 Diastolic Measurement: 83 Screening for High Blood Pressure: < Pre-Hypertensive BP, F/U Documented > [G8950] Pre-Hypertensive Follow-up Interventions: Referral to alternative/primary care ayaan cordero.
[2019-03-13] MEDS ORDERED: 0.9 % SODIUM CHLORIDE 1,000 ML BAG IV ONE (16:18)
[2019-03-13] MEDS ORDERED: KETOROLAC 30 MG/ML VIAL IVP ONE (16:18)
[2019-03-13] MEDS ORDERED: METOCLOPRAMIDE HCL 10 MG/2 ML VIAL IVP ONE (16:18)
== END 2019-03-13 17:58 | disposition home or self-care (01) ==
LOC: ER 15:46
DX: G43.909 Migraine, unspecified, not intractable, without status migrainosus (principal); M26.623 Arthralgia of bilateral temporomandibular joint; Z87.891 Personal history of nicotine dependence
CPT/HCPCS: 99284 ×2; 96374; 96375; J1885; J2765; J7030